=== PATIENT | female | born 1990 ===

== ENCOUNTER → 2020-08-19 12:53 | Outpatient (BNVA) | payer MEDICAID, SELFPAY | PROVIDERS: PCP Internal Medicine; Referring Provider Internal Medicine; Visit Provider Anesthesiology | DX: M47.16 Other spondylosis with myelopathy, lumbar region (principal); M46.1 Sacroiliitis, not elsewhere classified; E66.01 Morbid (severe) obesity due to excess calories | CPT/HCPCS: 99202 ==

== ENCOUNTER 2020-11-03 07:02 | Outpatient (REF) | payer MEDICAID, SELFPAY | END 2020-11-03 07:03 | disposition home or self-care (01) | LOC: HO.RADIR 07:02 | PROVIDERS: Visit Provider Anesthesiology | DX: Z13.89 Encounter for screening for other disorder (principal) ==

== ENCOUNTER 2023-05-11 15:29 | Outpatient (REF) | payer MEDICAID, SELFPAY ==
--- NOTE | 2023-05-11 | PFT_ITS ---
FLOWS: 1. FEV1 81% of predicted at 2.66 L. 2. FVC 76% of predicted at 2.96 L. 3. FEV1 to FVC ratio of 0.90. 4. No bronchodilator response. LUNG VOLUMES: 1. Total lung capacity 75% of predicted at 3.91 L. 2. Residual volume 72% of predicted at 1.07 L. 3. Slow vital capacity 76% of predicted at 2.84 L. 4. Expiratory reserve volume 23% of predicted at 0.33 L. 5. Diffusion capacity is normal. IMPRESSION: Mild restrictive ventilatory defect. No bronchodilator response. Decreased expiratory reserve volume suggests extrathoracic restriction, likely secondary to abdominal obesity. Sreedhar Long MD AP/MODL / [id number]
== END 2023-05-11 15:30 | disposition home or self-care (01) ==
LOC: HO.RESP 15:29
PROVIDERS: PCP Internal Medicine; Visit Provider Internal Medicine
DX: J45.20 Mild intermittent asthma, uncomplicated (principal)
CPT/HCPCS: 94010; 94727; 94729

== ENCOUNTER → 2023-05-11 15:30 | Outpatient (BNV) | payer MEDICAID, SELFPAY | PROVIDERS: PCP Internal Medicine; Visit Provider Internal Medicine Pulmonary Disease | DX: J45.909 Unspecified asthma, uncomplicated (principal) | CPT/HCPCS: 94060; 94727; 94729 ==

== ENCOUNTER → 2023-06-01 10:57 | Outpatient (BNVA) | payer MEDICAID, SELFPAY | PROVIDERS: PCP Internal Medicine; Visit Provider Physician Assistant ==

== ENCOUNTER 2023-06-07 08:00 | Outpatient (AMB) | payer MEDICAID, SELFPAY ==
--- NOTE | 2023-06-07 09:15 | A.OFFVIS_ITS ---
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 HPI Details Start time: 9am, End time: 9.57am ?I spent 52 minutes speaking with the patient on the phone plus an additional 5 minutes reviewing and updating records for a total of 57 minutes HPI Comments History of Present Illness Details Previous weight loss efforts: exercise, self diets, OTC diet pills Wakes up: 7am, Sleeps: 11pm Breakfast: skips Lunch: 12pm (pasta or sandwich) Dinner: 6.30pm (rice, potatoes, chicken) Snacks: none Exercise: none Fluids: Coffee: none, Tea: 1 cup x2/wk (honey), soda: none, juice: 1 cup /day, ETOH: 2/month (Whiskey) PFSH Medical History (Updated 06/07/23 @ 09:17 by Dash Worthington MD) History of headache Asthma Morbid obesity Spondylosis, lumbar, with myelopathy Sacroiliitis Surgical History (Updated 06/01/23 @ 11:11 by Rama Claros CMA) Hx of tubal ligation Hx of breast reduction, elective Family History (Updated 06/01/23 @ 11:13 by Rama Claros CMA) Mother Prediabetes Asthma Hypertension Father No problems noted. Son No problems noted. Son No problems noted. Daughter No problems noted. Social History (Updated 06/01/23 @ 11:11 by Rama Claros CMA) Alcohol intake: current Alcohol intake frequency: holidays/special occasions only Patient Tobacco Use Status: Current everyday Tobacco user Cigarettes Per Day: 5 Assessment & Plan Assessment & Plan (1) Morbid obesity: Code(s): E66.01 - Morbid (severe) obesity due to excess calories Plan: 1.? Plan for lap sleeve gastrectomy. If diaphragmatic or ventral hernias are present at time of surgery, these will be repaired laparoscopically as well. Risks and complications were discussed in detail including possible conversion to an open procedure, anastomotic leak, bleeding requiring transfusion, small bowel obstruction, , DVT and pulmonary embolism, cardiac, or pulmonary complications, as predatory animal exterminator complications such as anastomotic ulcer, insufficient weight loss and vitamin deficiencies. I emphasized the importance of close follow-up, adherence to instructions and good communication. 2. Nutritional counseling. Start with 2 Isopure INFUSION protein (buy at [employer], or [employer]) shakes (HALF scoop EACH in 8oz water) at 8am-10am and 11am-1pm, 1 protein bar (Zone Perfect protein bars, buy at [employer], ?[employer], [facility], or [employer]) at 2pm-4pm, dinner at 5pm (10 forks of protein and 10 forks of salad/vegetables) and one more protein bar after dinner at 7pm-9pm. If hungry, you can have another HALF protein bar at 10pm-11pm. Meal to include lean meat (beef, fish, pork, turkey, chicken), or thai yogurt, or egg whites, or beans with a salad with olive oil and fruits (berries, pears, apples, kiwi). Avoid salt, breads, potatoes, rice, pasta, desserts. 3. Each shake would be drunk slowly, like coffee in a period of 2 hours. 4. Cut each bar in 4 pieces and eat each piece in 30min ?to make each bar last 2 hours. 5. I emphasized the importance of measuring accurately the food portion and measure it when serving the food in plate 6. The meal portions include 10 full-size forks of meat and 10 full-size forks of salad. You always eat the meat portion but you can replace up to 5 forks for salad/vegetables with rice, potatoes or pasta, or a fruit ?if you like. The less you do it the better weight loss will be. 7. One full-size fork is what it can be scooped on the fork without falling aside and not what can be bit with the fork. Use regular forks like those you find in a typical restaurant. 8.? Please send me weight measurements as soon as possible and then once a week. Always include your diet and exercise plan. 9. Start walking outside daily, tracking calories with a goal of 300 calories per day, daily. Goal is to burn 2000 calories per week on exercise, which means either 300 calories daily, or 400 calories 5 days per week, or 500 calories 4 days per week, or 650 calories 3 days per week. 10. Alternatively purchase a stationary bike, elliptical or treadmill at home that can track calories. Let me know if you do so I can give you an exercise plan. 11.?It is important of avoiding and for at least 18 months postoperatively and has been discussed at the infosession. 12. Goal is to lose at least 1.5-2lbs per week 13. Goal to lose 10% of your weight before surgery, which is about 27lbs. Ultimate weight goal: 245lbs before surgery 14. Please follow the diet plan exactly without any change. If you don't like something about the plan or you feel hungry you need to communicate with me so I can help you revise the plan. You should not change the plan yourself. (2) Spondylosis, lumbar, with myelopathy: Code(s): M47.16 - Other spondylosis with myelopathy, lumbar region (3) Asthma: Comment: has rescue inhaler only Code(s): J45.909 - Unspecified asthma, uncomplicated Orders: Orders Lipid Panel Today E66.01 - Morbid (severe) obesity due to excess calories, J45.909 - Unspecified asthma, uncomplicated IRON PROFILE Today E66.01 - Morbid (severe) obesity due to excess calories, J45.909 - Unspecified asthma, uncomplicated Complete Blood Count Auto Diff Today E66.01 - Morbid (severe) obesity due to excess calories, J45.909 - Unspecified asthma, uncomplicated Comprehensive Met. Panel Today E66.01 - Morbid (severe) obesity due to excess calories, J45.909 - Unspecified asthma, uncomplicated Vitamin B1 Today E66.01 - Morbid (severe) obesity due to excess calories, J45.909 - Unspecified asthma, uncomplicated C Reactive Protein Today E66.01 - Morbid (severe) obesity due to excess calories, J45.909 - Unspecified asthma, uncomplicated TSH reflex Free T4 Today E66.01 - Morbid (severe) obesity due to excess calories, J45.909 - Unspecified asthma, uncomplicated H Pylori Breath Test Today E66.01 - Morbid (severe) obesity due to excess calories, J45.909 - Unspecified asthma, uncomplicated Vitamin D 25-OH Total Today E66.01 - Morbid (severe) obesity due to excess calories, J45.909 - Unspecified asthma, uncomplicated US abdomen comp w elastography Today E66.01 - Morbid (severe) obesity due to excess calories, J45.909 - Unspecified asthma, uncomplicated XR chest 2V Today E66.01 - Morbid (severe) obesity due to excess calories, J45.909 - Unspecified asthma, uncomplicated FL upper GI w air Today E66.01 - Morbid (severe) obesity due to excess calories, J45.909 - Unspecified asthma, uncomplicated Insulin Today E66.01 - Morbid (severe) obesity due to excess calories, J45.909 - Unspecified asthma, uncomplicated Vitamin B12 and Folate Today E66.01 - Morbid (severe) obesity due to excess calories, J45.909 - Unspecified asthma, uncomplicated Zinc Today E66.01 - Morbid (severe) obesity due to excess calories, J45.909 - Unspecified asthma, uncomplicated Vitamin A Today E66.01 - Morbid (severe) obesity due to excess calories, J45.909 - Unspecified asthma, uncomplicated Ferritin Today E66.01 - Morbid (severe) obesity due to excess calories, J45.909 - Unspecified asthma, uncomplicated PTHI Today E66.01 - Morbid (severe) obesity due to excess calories, J45.909 - Unspecified asthma, uncomplicated Hemoglobin A1c Today E66.01 - Morbid (severe) obesity due to excess calories, J45.909 - Unspecified asthma, uncomplicated ECG 12 lead EKG Today E66.01 - Morbid (severe) obesity due to excess calories, J45.909 - Unspecified asthma, uncomplicated Referrals Behavioral Health Referral E66.01 - Morbid (severe) obesity due to excess calories, J45.909 - Unspecified asthma, uncomplicated Nutrition/Dietitian Referral E66.01 - Morbid (severe) obesity due to excess calories, J45.909 - Unspecified asthma, uncomplicated Telehealth Telehealth Location of provider rendering services: practice address Location of patient: address on file Patient Identification confirmed using: Name, : Yes Telehealth method: voice only Patient verbally consented to treatment: Yes Patient verbally consented to billing insurance company: Yes Patient informed of any privacy concerns related to visit: Yes Minutes spent on Phone/Video with Pt.: 57 Coding Level of Care Code Tele New Pt Level 4 (46593) Diagnoses Morbid obesity E66.01 Spondylosis, lumbar, with myelopathy M47.16 Asthma J45.909 Time Spent (min) 57
[2023-06-07 09:22] VITALS: BMI 46.7
== END 2023-06-07 09:58 | disposition home or self-care (01) ==
PROVIDERS: PCP Internal Medicine; Visit Provider Surgery
DX: E66.01 Morbid (severe) obesity due to excess calories (principal); Z68.42 Body mass index [BMI] 45.0-49.9, adult; M47.16 Other spondylosis with myelopathy, lumbar region; J45.909 Unspecified asthma, uncomplicated
CPT/HCPCS: 99205

== ENCOUNTER → 2023-06-07 08:00 | Outpatient (BNVA) | payer MEDICAID, SELFPAY | PROVIDERS: PCP Internal Medicine; Visit Provider Surgery | DX: E66.01 Morbid (severe) obesity due to excess calories (principal); M47.16 Other spondylosis with myelopathy, lumbar region; J45.909 Unspecified asthma, uncomplicated; Z68.42 Body mass index [BMI] 45.0-49.9, adult | CPT/HCPCS: 83013 ==

== ENCOUNTER → 2023-06-14 11:42 | Outpatient (REF) | payer MEDICAID, SELFPAY ==
--- NOTE | 2023-06-14 11:49 | ECG_ITS ---
Test Reason : MORBID OBESITY Blood Pressure : / mmHG Vent. Rate : 083 BPM Atrial Rate : 083 BPM P-R Int : 120 ms QRS Dur : 088 ms QT Int : 364 ms P-R-T Axes : 007 026 017 degrees QTc Int : 427 ms Normal sinus rhythm Normal ECG No previous ECGs available Referred By: Dash Worthington Electronically Signed By:FELICIA ZAYAS
== END ==
LOC: HO.CARD 11:42
PROVIDERS: Visit Provider Surgery
DX: E66.01 Morbid (severe) obesity due to excess calories (principal); J45.909 Unspecified asthma, uncomplicated
CPT/HCPCS: 71046; 93005

== ENCOUNTER 2023-06-15 12:10 | Outpatient (REF) | payer MEDICAID, SELFPAY | END 2023-06-15 12:11 | disposition home or self-care (01) | LOC: HO.LAB 12:10 | PROVIDERS: PCP Internal Medicine; Visit Provider Surgery | DX: E66.01 Morbid (severe) obesity due to excess calories (principal); J45.909 Unspecified asthma, uncomplicated | CPT/HCPCS: 36415; 80053; 80061; 82306; 82607; 82728; 82746; 83013; 83036; 83525; 83540; 83970; 84425; 84443; 84590; 84630; 85025; 86140 ==

== ENCOUNTER → 2023-07-07 08:02 | Outpatient (BNVA) | payer MEDICAID, SELFPAY | PROVIDERS: PCP Internal Medicine; Visit Provider Surgery ==

== ENCOUNTER → 2023-07-10 14:11 | Outpatient (BNVA) | payer MEDICAID, SELFPAY | PROVIDERS: PCP Internal Medicine; Visit Provider Dietitian, Registered | DX: E66.01 Morbid (severe) obesity due to excess calories (principal); Z68.42 Body mass index [BMI] 45.0-49.9, adult | CPT/HCPCS: 97802 ==

== ENCOUNTER 2023-07-13 08:29 | Outpatient (AMB) | payer MEDICAID, SELFPAY ==
--- NOTE | 2023-07-13 09:46 | A.OFFVIS_ITS ---
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 Allergies No Known Allergies Allergy (Verified 06/07/23 09:15) HPI TV Follow Up SWL HPI Details Start time: 9.36am, End time: 10.06am ?I spent 25 minutes speaking with the patient on the phone plus an additional 5 minutes reviewing and updating records for a total of 30 minutes HPI Comments History of Present Illness Details Overall weight loss: 0.2lbs Is doing 2 Isopure Infusions shakes (1/2 scoop each in 8oz water), 2 Zone Perfect protein bars and one meal (7 forks of protein and 7 forks of salad) Exercise: walking/jogging x3/week [facility] Medical History (Updated 07/13/23 @ 09:42 by Dash Worthington MD) History of headache Asthma Morbid obesity Spondylosis, lumbar, with myelopathy Sacroiliitis Surgical History (Updated 06/01/23 @ 11:11 by Rama Claros CMA) Hx of tubal ligation Hx of breast reduction, elective Family History (Updated 06/01/23 @ 11:13 by Rama Claros CMA) Mother Prediabetes Asthma Hypertension Father No problems noted. Son No problems noted. Son No problems noted. Daughter No problems noted. Social History (Updated 06/01/23 @ 11:11 by Rama Claros CMA) Alcohol intake: current Alcohol intake frequency: holidays/special occasions only Patient Tobacco Use Status: Current everyday Tobacco user Cigarettes Per Day: 5 Assessment & Plan Assessment & Plan (1) Morbid obesity: Code(s): E66.01 - Morbid (severe) obesity due to excess calories Plan: 1. Change nutritional plan to 2 Isopure Infusions shakes (1/2 scoop each in 8oz water), 2 Zone Perfect protein bars and one meal (TEN forks of protein and TEN forks of salad) 2. Exercise: continue walking/jogging ideally 5 days per week. Track the calories of your walks and report them to me. Goal is to burn 2000 calories per week on aerobic exercise 3. Please purchase a stationary bike, elliptical or treadmill at home that can track calories. Let me know if you do so I can give you an exercise plan. 4. Send me weight measurements today and then weekly on . This is very important. Medications: New vitamin A palmitate 10,000 units PO DAILY 30 caps 0RF E50.9 - Vitamin A deficiency, unspecified Telehealth Telehealth Location of provider rendering services: practice address Location of patient: address on file Patient Identification confirmed using: Name, : Yes Telehealth method: voice only Patient verbally consented to treatment: Yes Patient verbally consented to billing insurance company: Yes Patient informed of any privacy concerns related to visit: Yes Minutes spent on Phone/Video with Pt.: 30 Coding Level of Care Code Tele Est Pt Level 4 (54699) Diagnoses Morbid obesity E66.01 Time Spent (min) 30
[2023-07-13 09:58] VITALS: BMI 46.7
== END 2023-07-13 10:07 | disposition home or self-care (01) ==
LOC: HO.HBS 08:29
PROVIDERS: PCP Internal Medicine; Visit Provider Surgery
DX: E66.01 Morbid (severe) obesity due to excess calories (principal); Z68.42 Body mass index [BMI] 45.0-49.9, adult
CPT/HCPCS: 99214

== ENCOUNTER → 2023-07-13 08:29 | Outpatient (BNVA) | payer MEDICAID, SELFPAY | PROVIDERS: PCP Internal Medicine; Visit Provider Surgery ==

== ENCOUNTER 2023-07-26 09:45 | Outpatient (REF) | payer MEDICAID, SELFPAY ==
[2023-07-29 09:09] LABS: H Pylori Breath Test Positive (Negative)
== END 2023-07-26 09:46 | disposition home or self-care (01) ==
LOC: HO.LNP 09:45
PROVIDERS: PCP Internal Medicine; Visit Provider Surgery
DX: A04.8 Other specified bacterial intestinal infections (principal)
CPT/HCPCS: 83013; 99211

== ENCOUNTER → 2023-07-31 08:17 | Outpatient (BNVA) | payer MEDICAID, SELFPAY | PROVIDERS: PCP Internal Medicine; Visit Provider Surgery ==

== ENCOUNTER 2023-08-07 10:15 | Outpatient (AMB) | payer MEDICAID, SELFPAY ==
--- NOTE | 2023-08-07 10:18 | A.OFFWM_ITS ---
Intake Intake Visit Reasons: VIDEO BH Intake Allergies No Known Allergies Allergy (Verified 06/07/23 09:15) [facility] Medical History (Updated 08/07/23 @ 10:40 by Cindy Gibson) History of headache Asthma Morbid obesity Spondylosis, lumbar, with myelopathy Sacroiliitis Surgical History (Updated 06/01/23 @ 11:11 by Rama Claros CMA) Hx of tubal ligation Hx of breast reduction, elective Family History (Updated 06/01/23 @ 11:13 by Rama Claros CMA) Mother Prediabetes Asthma Hypertension Father No problems noted. Son No problems noted. Son No problems noted. Daughter No problems noted. (Updated 06/01/23 @ 11:11 by Rama Claros CMA) Alcohol intake: current Alcohol intake frequency: holidays/special occasions only Patient Tobacco Use Status: Current everyday Tobacco user Cigarettes Per Day: 5 Behavioral Health Assessment Weight Management Therapy Therapy Notes Details Pt is looking to have weight loss surgery to help improve her health and quality of life. Pt stated that she does not feel comfortable with herself. She denied any mental health treatment or issues recently or in the past. She has never been in therapy. Pt has no history of drug or alcohol abuse. Presenting Concerns Referral Source provider Reason for referral weight loss surgery evaluation Precipitating Event obesity Living Situation At risk of losing current housing? Yes Satisfied with current living situation? No Comments Pt lives with her fiance and her children ages 15, 14, and 9 years old. Food/Weight/Diet Expectations of change weight loss and maintenance History/Relationship with food Pt stated that she was eating take out about three times a week, food at home was pasta, rice, beans, plantains, meat, breads. History/Relationship with weight After her third , she reported struggling with her weight. History/Relationship with dieting self diets and exercise, minimal weight loss Binge Eating Do you frequently eat large amounts of food in short periods of time, not feeling physically hungry? Yes Do you feel out of control when you eat a large amount of food in a short period of time? No Do you eat large amounts of food rapidly and typically alone? Yes Night Eating Do you wake up at least once during the night to eat? No If you wake up in the night, do you find that it is necessary to eat something in order to fall back asleep? No Do you have little or no appetite in the morning and feel very hungry in the evening, often overeating between dinner and when you go to bed? Yes Social History Family history and relationship Pt was born in [place] and raised here by her mother, step father and two sisters and one brother. 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 none Education Highest grade completed 9th grade Preferred learning style Auditory, Verbal, Written, Learn by doing and Visual Currently enrolled in educational program? No Interested in further educational program? 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 No Financial Situation Financial assistance? None Service Service? No Mental Health and Addiction Treatment Current/Past substance abuse? No Current/Past addictive behavior concerns? No Medical and Physical Health Summary Physical exam in the last year? Yes Pain Screening Current pain? Yes Pain in the last few months? No Medications Is the patient compliant with medications? Yes Does the patient have He Guardian in place? Not applicable Does the patient use complimentary health approaches? No Trauma/Abuse History History of trauma? No Questionnaires PHQ-9 Over the last 2 weeks, how often have you been bothered by any of the following problems? 1. Little interest or pleasure in doing things: several days 2. Feeling down, depressed, or hopeless: not at all 3. Trouble falling or staying asleep, or sleeping too much: several days 4. Feeling tired or having little energy: several days 5. Poor appetite or overeating: several days 6. Feeling bad about yourself - or that you are a failure or have let yourself or your family down: not at all 7. Trouble concentrating on things, such as reading the newspaper or watching television: several days 8. Moving or speaking so slowly that other people could have noticed. Or the opposite - being so fidgety or restless that you have been moving around a lot more than usual: not at all 9. Thoughts that you would be better off or of hurting yourself in some way: not at all Total score: 5 Source: Developed by Christina UrbinaW. Dhiraj, Ruddy Menezes and colleagues, with an educational calvin from [employer]. Binge Eating Scale Group 1 A. I don't feel self-conscious about my wt. or body size when I'm with others. B. I feel concerned about how I look to others, but it normally does not make me fell disappointed with myself C. I do get self-conscious about my appearance and wt. which makes me feel disappointed in myself. D. I feel very self-conscious about my wt. and frequently I feel intense shame and disgust for myself. I try to avoid social contacts because of my self- consciousness. Response Group 1: C Group 2 A. I don't have any difficulty eating slowly in the proper manner. B. Although I seem to gobble down foods, I don't end up feeling stuffed because of eating to much. C. At times, I tend to eat quickly and then, I feel uncomfortably full afterwards. D. I have the habit of bolting down my food, without really chewing it. When this happens I usually feel uncomfortably stuffed because I've eaten to much. Response Group 2: C Group 3 A. I feel capable to control my eating urges when I want to. B. I feel like I have failed to control my eating more than the average person. C. I feel utterly helpless when it comes to feeling in control of my eating urges. D. Because I feel so helpless about controlling my eating I have become very desperate about trying to get control. Response Group 3: A Group 4 A. I don't have the habit of eating when I'm bored. B. I sometimes eat when I'm bored, but often I'm able to get busy and get my mind off food. C. I have a regular habit of eating when I'm bored, but occasionally, I can use some other activity to get my mind off eating. D. I have a strong habit of eating when I'm bored. Nothing seems to help me breath the habit. Response Group 4: B Group 5 A. I'm usually physically hungry when I eat something. B. Occasionally, I eat something on impulse even though I really am not hungry. C. I have the regular habit of eating foods, that I might not really enjoy, to satisfy a hungry feeling even though physically, I don't need the food. D. Although I'm not physically hungry, I get a hungry feeling in my mouth that only seems to be satisfied when I eat a food, like sandwich, that fills my mouth. Sometimes, when I eat the food to satisfy my mouth hunger, I then spit the food out so I won't gain weight. Response Group 5: B Group 6 A. I don't feel any guilt or self-hate after I overeat. B. After I overeat, occasionally I feel guilt or self-hate. C. Almost all the time I experience strong guilt or self-hate after I overeat. Response Group 6: B Group 7 A. I don't lose total control of my eating when dieting even after periods when I overeat. B. Sometimes when I eat a forbidden food on a diet, I feel like I blew it and eat even more. C. Frequently, I have the habit of saying to myself, I've blown it now, why not go all the way, when I overeat on a diet. When that happens I eat more. D. I have a regular habit of starting a strict diets for myself but I break the diets by going on an eating binge. My life seems to be either a feast or famine. Response Group 7: A Group 8 A. I rarely eat so much food that I feel uncomfortably stuffed afterwards. B. Usually about once a month, I each such a quantity of food, I end up feeling very stuffed. C. I have regular periods during the month when I eat large amounts of food, either at mealtime or at snacks. D. I eat so much food that I regularly feel quite uncomfortable after eating and sometimes a bit nauseous. Response Group 8: C Group 9 A. My level of calorie intake does not go up very high or go down very low on a regular basis. B. Sometimes after I overeat, I will try to reduce my caloric intake to almost nothing to compensate for the excess calories I've eaten. C. I have a regular habit of overeating during the night. It seems that my routine is not to be hungry in the morning but overeat in the evening. D. In my adult years, I have had week-long periods where I practically starve myself. This follows periods when I overeat. It seems I live a life of either feast or famine. Response Group 9: B Group 10 A. I usually am able to stop eating when I want to. I know when enough is enough. B. Every so often, I experience a compulsion to eat which I can't seem to control. C. Frequently, I experience strong urges to eat which I seem unable to control, but at other times I can control my eating urges. D. I feel incapable of controlling urges to eat. I have a fear of not being able to stop eating voluntarily. Response Group 10: B Group 11 A. I don't have any problem stopping eating when I feel full. B. I usually can stop eating when I feel full but occasionally overeat leaving me feeling uncomfortably stuffed. C. I have a problem stopping eating once I start and usually I feel uncomfortably stuffed after I eat a meal. D. Because I have a problem not being able to stop eating when I want, I sometimes have to induce vomiting to relieve my stuffed feeling. Response Group 11: A Group 12 A. I seem to eat just as much when I'm with others, Family social gatherings as when I'm by myself. B. Sometimes, when I'm with other persons, I don't eat as much as I want to eat because I'm self-conscious about my eating. C. Frequently, I eat only a small amount of food when others are present, because I'm very embarrassed about my eating. D. I feel so ashamed about overeating that I pick times to overeat when I know no one will see me. I feel like a closet eater. Response Group 12: B Group 13 A. I eat three meals a day with only an occasional between meal snack. B. I eat 3 meals a day, but I also normally snack between meals. C. When I am snacking heavily, I get in the habit of skipping regular meals. D. There are regular periods when I seem to be continually eating, with no planned meals. Response Group 13: A Group 14 A. I don't think much about trying to control unwanted eating urges. B. At least some of the time, I feel my thoughts are pre-occupied with trying to control my eating urges. C. I feel that frequently I spend much time thinking about how much I ate or about trying not to eat anymore. D. It seems to me that most of my waking hours are pre-occupied by thoughts about eating or not eating. I feel like I'm constantly struggling not to eat. Response Group 14: C Group 15 A. I don't think about food a great deal. B. I have strong craving for food but they last only for brief periods of time. C. I have days when I can't seem to think about anything else but food. D. Most of my days seem to be pre-occupied with thoughts about food. I feel like I live to eat. Response Group 15: B Group 16 A. I usually know whether or not I'm physically hungry. I take the right portion of food to satisfy me. B. Occasionally, I feel uncertain about knowing whether or not I'm physically hungry. A these times it's hard to know how much food I should take to satisfy me. C. Even though I might know how many calories I should eat, I don't have any idea what is a normal amount of food for me. Response Group 16: B Binge Eating Score: 16 Score less than 17 Minimal Risk Score between 18-26 Moderate Risk Score between 27-46 High Risk Assessment & Plan Assessment & Plan (1) Adjustment disorder, unspecified: Code(s): F43.20 - Adjustment disorder, unspecified (2) Morbid obesity: Code(s): E66.01 - Morbid (severe) obesity due to excess calories Plan Pt has no mental health history or treatment. She is cleared for surgery when ready. Telehealth Telehealth Location of provider rendering services: practice address Location of patient: address on file Patient Identification confirmed using: Name, : Yes Telehealth method: video Patient verbally consented to treatment: Yes Patient verbally consented to billing insurance company: Yes Patient informed of any privacy concerns related to visit: Yes Minutes spent on Phone/Video with Pt.: 30 Coding Level of Care Code Tele Psy Diag Eval (95376) Diagnoses Adjustment disorder, unspecified F43.20 Morbid obesity E66.01 Time Spent (min) 30
== END 2023-08-07 10:40 | disposition home or self-care (01) ==
LOC: HO.HBST 10:36
PROVIDERS: PCP Internal Medicine; Visit Provider Counselor Mental Health
DX: F43.20 Adjustment disorder, unspecified (principal); E66.01 Morbid (severe) obesity due to excess calories
CPT/HCPCS: 90791

== ENCOUNTER → 2023-08-07 10:15 | Outpatient (BNVA) | payer OTHER, MEDICAID, SELFPAY | PROVIDERS: PCP Internal Medicine; Visit Provider Counselor Mental Health | DX: E66.01 Morbid (severe) obesity due to excess calories (principal); F43.20 Adjustment disorder, unspecified | CPT/HCPCS: 90791 ==

== ENCOUNTER 2024-02-23 14:11 | Outpatient (REF) | payer MEDICAID, SELFPAY ==
[2024-02-23 15:05] LABS: Estimated Average Glucose 111 mg/dL; Hemoglobin A1c % 5.5 % (<6.0)
[2024-02-23 15:20] LABS: Anion Gap 13 (12-20); Blood Urea Nitrogen 7 mg/dL (9-16); Calcium 8.9 mg/dL (8.4-10.2); Carbon Dioxide 25 mmol/L (22-29); Chloride 105 mmol/L (96-108); Estimated Glomerular Filt Rate > 60; Glucose Random 94 mg/dL (60-115); Potassium 3.9 mmol/L (3.3-5.1); Sodium 139 mmol/L (135-145)
[2024-02-23 15:34] LABS: TSH reflex Free T4 1.15 uIU/mL (0.32-4.0)
== END 2024-02-23 14:12 | disposition home or self-care (01) ==
LOC: HO.CHCLDS 14:11
PROVIDERS: Visit Provider Internal Medicine
DX: G56.03 Carpal tunnel syndrome, bilateral upper limbs (principal)
CPT/HCPCS: 36415; 80048; 83036; 84443

== ENCOUNTER 2024-03-08 14:29 | Outpatient (REF) | payer MEDICAID, SELFPAY ==
--- NOTE | 2024-03-08 14:34 | EMG_ITS ---
Chief complaint: Bilateral hand numbness Reason for referral: Evaluate for Carpal Tunnel Syndrome Referred by: Dr. Arias Procedure done: Bilateral upper extremities NCS/EMG Precautions and/or limitations: None The limb temperature was monitored continuously and remained between 32-36 degrees C during the performance of the NCS. Nerve Conduction Studies Anti Sensory Summary Table ?Stim Site NR Onset (ms) Norm Onset (ms) Peak (ms) Norm Peak (ms) O-P Amp (?V) Norm O-P Amp Site1 Site2 Delta-0 (ms) Dist (cm) Haroon (m/s) Norm Haroon (m/s) Left Median Anti Sensory (2nd Digit) Wrist ? 3.5 4.7 <3.6 3.7 >10 Wrist 2nd Digit 3.5 14.0 40 Right Median Anti Sensory (2nd Digit) Wrist ? 3.4 4.1 <3.6 11.3 >10 Wrist 2nd Digit 3.4 14.0 41 Right Radial Anti Sensory (Thumb) Forearm ? 1.4 1.9 <3.1 22.9 Forearm Thumb 1.4 0.0 Left Ulnar Anti Sensory (5th Digit) Wrist ? 1.8 2.8 <3.7 18.2 >15.0 Wrist 5th Digit 1.8 14.0 78 Right Ulnar Anti Sensory (5th Digit) Wrist ? 1.6 2.6 <3.7 35.0 >15.0 Wrist 5th Digit 1.6 14.0 88 Motor Summary Table ?Stim Site NR Onset (ms) Norm Onset (ms) O-P Amp (mV) Norm O-P Amp iAmp (mV) Amp (1st) (%) Site1 Site2 Delta-0 (ms) Dist (cm) Haroon (m/s) Norm Haroon (m/s) Left Median Motor (Abd Poll Brev) Wrist ? 4.6 <3.9 9.3 >4.5 11.1 100.0 Elbow Wrist 3.8 22.5 59 >45 Elbow ? 8.4 8.7 10.5 93.5 Right Median Motor (Abd Poll Brev) Wrist ? 4.1 <3.9 11.7 >4.5 13.9 100.0 Elbow Wrist 3.5 21.0 60 >45 Elbow ? 7.6 9.7 11.5 82.9 Left Ulnar Motor (Abd Dig Minimi) Wrist ? 1.8 <3.0 5.4 >5 6.8 100.0 B Elbow Wrist 3.3 20.0 61 >45 B Elbow ? 5.1 5.6 7.0 103.7 A Elbow B Elbow 1.5 10.0 67 >45 A Elbow ? 6.6 5.6 6.8 103.7 Right Ulnar Motor (Abd Dig Minimi) Wrist ? 2.4 <3.0 8.9 >5 10.2 100.0 B Elbow Wrist 3.1 19.0 61 >45 B Elbow ? 5.5 9.0 10.3 101.1 A Elbow B Elbow 1.1 10.0 91 >45 A Elbow ? 6.6 8.9 10.3 100.0 EMG ?Side Muscle Nerve Root Ins Act Fibs Psw Amp Dur Poly Recrt Int Pat Comment Right 1stDorInt Ulnar C8-T1 Nml Nml Nml Nml Nml 0 Nml Complete Right FlexCarRad Median C6-7 Nml Nml Nml Nml Nml 0 Nml Complete Right Biceps Musculocut C5-6 Nml Nml Nml Nml Nml 0 Nml Complete Right Triceps Radial C6-7-8 Nml Nml Nml Nml Nml 0 Nml Complete Right Deltoid Axillary C5-6 Nml Nml Nml Nml Nml 0 Nml Complete Left 1stDorInt Ulnar C8-T1 Nml Nml Nml Nml Nml 0 Nml Complete Left FlexCarRad Median C6-7 Nml Nml Nml Nml Nml 0 Nml Complete Left Biceps Musculocut C5-6 Nml Nml Nml Nml Nml 0 Nml Complete Left Triceps Radial C6-7-8 Nml Nml Nml Nml Nml 0 Nml Complete Left Deltoid Axillary C5-6 Nml Nml Nml Nml Nml 0 Nml Complete FINDINGS: Bilateral median motor nerves showed prolonged distal latency, normal amplitude and normal conduction velocity. Bilateral median sensory nerves showed prolonged peak latency. All other nerves tested were within normal. Concentric needle EMG was performed in selected muscles of the bilateral upper extremities. Study did not reveal signs of electric abnormalities as shown in the table above. IMPRESSION: 1. This is an abnormal study. 2. There is electrodiagnostic evidence for bilateral moderate-severe median neuropathy at the wrist, consistent with carpal tunnel syndrome. 3. There is no electrodiagnostic evidence for ulnar neuropathy, brachial plexopathy, or cervical radiculopathy. Thank you for your kind referral. Lea Ortega MD, TISH Board Certified, [place] [employer] and [employer] (ABPMR) Board Certified, [place] Board [employer] Electrodiagnostic [employer] (ABEM) CODIN [id number] x 2 MTDD
== END 2024-03-08 14:30 | disposition home or self-care (01) ==
LOC: HO.NEURO 14:29
PROVIDERS: PCP Internal Medicine; Visit Provider Internal Medicine
DX: G56.03 Carpal tunnel syndrome, bilateral upper limbs (principal)
CPT/HCPCS: 95886; 95911

== ENCOUNTER → 2024-03-08 14:34 | Outpatient (BNV) | payer MEDICAID, SELFPAY | PROVIDERS: PCP Internal Medicine; Visit Provider Physical Medicine & Rehabilitation | DX: G56.03 Carpal tunnel syndrome, bilateral upper limbs (principal) | CPT/HCPCS: 95886; 95911 ==

== ENCOUNTER 2024-04-09 08:48 | Outpatient (AMB) | payer MEDICAID, SELFPAY ==
--- NOTE | 2024-04-09 09:05 | A.OFFVIS_ITS ---
Intake Visit Reasons: N/P B/L hand CTS Intake Note: Melanie is a 33 year old female who presents to the office today for a new patient visit for bilateral hand CTS. Pt states she has pain in her hands everyday but states the left is worse. Pt states the pain is worse after work. Pt states she works for the [employer]. Pt states she also gets numbness and tingling in both of her hands and fingers. Allergies No Known Allergies Allergy (Verified 04/09/24 08:58) HPI HPI N/P B/L hand CTS: Details: Patient is a 33-year-old left-hand dominant female who presents for evaluation of bilateral carpal tunnel syndrome. Patient reports that symptoms have been for many months, and then the left side is worse than the right. She reports that symptoms are intermittent, but daily, and she has pain that regularly wakes her from sleep or keeps her from sleeping. Patient had EMG done previously on March 04, revealing moderate to severe carpal tunnel bilaterally. Today, patient reports that she is not experiencing numbness and tingling currently, but states that if she were to position her hand and wrist a certain way it would begin. Patient inquires about potential treatment options. No other acute complaints or concerns at this time [facility] Medical History (Updated 04/09/24 @ 10:52 by LEXY Ramos) History of headache Asthma Morbid obesity Spondylosis, lumbar, with myelopathy Sacroiliitis Surgical History (Updated 06/01/23 @ 11:11 by Rama Claros CMA) Hx of tubal ligation Hx of breast reduction, elective Family History (Updated 06/01/23 @ 11:13 by Rama Claros CMA) Mother Prediabetes Asthma Hypertension Father No problems noted. Son No problems noted. Son No problems noted. Daughter No problems noted. Social History (Updated 06/01/23 @ 11:11 by Rama Claros CMA) Alcohol intake: current Alcohol intake frequency: holidays/special occasions only Patient Tobacco Use Status: Current everyday Tobacco user Cigarettes Per Day: 5 Review of Systems Const All systems reviewed & are unremarkable except as noted in HPI and below Physical Exam Extrem Other: Patient is alert, oriented, and in no acute distress. Neuro: Median, ulnar, radial nerves motor and sensory intact and sensation is normal to the tips of all digits. Vascular: Cap refill brisk Pain: Patient reports no pain at this time ROM: Range of motion full and intact bilaterally Skin: No lacerations or abrasions. General: No ecchymosis, erythema, or evidence of infection. Positive Tinel's test at the wrist bilaterally Psych: Appears grossly normal Affect normal Attitude cooperative Results Reviewed Results Reviewed: IMPRESSION: 1. This is an abnormal study. 2. There is electrodiagnostic evidence for bilateral moderate-severe median neuropathy at the wrist, consistent with carpal tunnel syndrome. 3. There is no electrodiagnostic evidence for ulnar neuropathy, brachial plexopathy, or cervical radiculopathy. Assessment & Plan Assessment & Plan (1) Carpal tunnel syndrome, bilateral: Code(s): G56.03 - Carpal tunnel syndrome, bilateral upper limbs Category: Medical Plan 1. Carpal tunnel syndrome, left Symptoms intermittent, but daily, worse at night I educated the patient about the condition. I discussed both operative and nonoperative treatment options. The patient would like to proceed with surgery. The risks and benefits of operative treatment were discussed with the patient and the patient wishes to proceed with surgery. These risks include, but are not limited to, risk of damage to blood vessels, nerves, tendons, infection, recurrence, incomplete relief of preoperative symptoms, persistent pain, possible need for further surgery, and the risks associated with regional blocks and/or anesthesia. Plan is to take the patient to the operating room at some point in the next few weeks for the following procedures: 1. Carpal tunnel release, left, under local anesthesia All of the preoperative paperwork including the consent was discussed today. All of the patient's questions were answered in the clinic today. The patient understands that they will be in contact with our commercial sales representative to discuss scheduling their procedure. Patient denies diabetes, blood thinners, asthma, heart issues, lung issues, kidney issues, Patient reports occasional light smoking currently, but states that she will st op smoking today, as she feels she can quit cold turkey without issue. 2. Carpal tunnel syndrome, right Symptoms intermittent, but daily, worse at night Patient feels her symptoms are more bothersome on the left side, so she would like to proceed with surgery on the left prior to surgery on the right Patient is informed that, if she is healing well, we can book surgery on the right at her postoperative visit for her left side Patient is amenable to this plan Patient will follow-up in the office prior to surgery, sooner with any acute concerns Coding Level of Care Code New Pt Level 4 (94827) Diagnoses Carpal tunnel syndrome, bilateral G56.03
== END 2024-04-09 09:30 | disposition home or self-care (01) ==
PROVIDERS: PCP Internal Medicine
DX: G56.03 Carpal tunnel syndrome, bilateral upper limbs (principal)
CPT/HCPCS: 99204

== ENCOUNTER → 2024-04-09 08:48 | Outpatient (BNVA) | payer MEDICAID, SELFPAY | PROVIDERS: PCP Internal Medicine | DX: G56.03 Carpal tunnel syndrome, bilateral upper limbs (principal) | CPT/HCPCS: 99212 ==

== ENCOUNTER 2024-09-23 13:56 | Day surgery (SDC) | payer MEDICAID, SELFPAY ==
[2024-09-23 14:13] VITALS: BMI 41.9
[2024-09-23 14:14] VITALS: PULSE 94; RESP 18; TEMP 36.1; O2SAT 96
[2024-09-23 14:15] VITALS: BP 124/81
--- NOTE | 2024-09-23 15:49 | MHC.SHP ---
Pre-Procedural Eval Section A - 24 Hr Update-Section A only Date of Service: 09/23/24 The patient is an INPATIENT: No Changes since office visit: No Cold of Flu in the past 2 weeks, No New Medical Problems, No Changes in Medication and No Patient answered all questions The patient has been examined within 24 hours of the surgical procedure. The History & Physical has been completed within 30 days and I have reviewed it.: Yes Section B - Complete if H&P > 30 days Chief Complaint: Carpal tunnel syndrome, left upper limb Allergies: Allergies Allergy/AdvReac Type Severity Reaction Status Date / Time No Known Allergies Allergy Verified 04/09/24 08:58 Plan Diagnosis/Plan: Unchanged I have reviewed the history and physical and performed a pertinent physical examination on my patient. No changes have occurred unless specified. Time Spent With Patient Time: Total time managing care of this patient today ____ minutes.
--- NOTE | 2024-09-23 15:49 | W.PM.OPN ---
Operative Note Operative Note Date of Service: 09/23/24 Narrative: Preop diagnosis: 1. Left Carpal tunnel syndrome Postop diagnosis: same Procedure: 1. Left Carpal tunnel release Surgeon: Debora Rojas MD Garment Inspector: None Anesthesia: local block using 1% lidocaine with epinephrine Findings: Thickened transverse carpal ligament. EBL: Less than 5 mL Specimens: None Complications: None Disposition: Brought to recovery room in stable condition Plan: Follow-up for 10-14 days for wound check and suture removal Indications: The patient is 34 years old, with left carpal tunnel syndrome that has been unresponsive to nonoperative management. The risks and benefits of operative treatment including but not limited to risk of damage to blood vessels, nerves, tendons, infection, persistent pain, persistent symptoms, or possible need for additional surgery were discussed with the patient and the patient wishes to proceed with surgery. Procedure: Once consent was obtained a local block was performed using a combination of 1% lidocaine with epinephrine. The patient was then brought back to the operating suite and placed on the operative table in supine position. The left upper extremity was prepped and draped in a standard surgical fashion. Once assured that we had a good block, a 2.0 cm longitudinal incision was made centered over the carpal tunnel. The incision was made through the skin to the subcutaneous tissues using a #15 blade. Dissection was made down to the level of the transverse carpal ligament with care being taken to protect the palmar cutaneous nerve. Once the transverse carpal ligament was clearly visualized, a longitudinal incision was made in the transverse carpal ligament 1st using a #15 blade, then using tenotomy scissors under direct visualization. Care was taken to look for and protect the motor branch of the median nerve when seen in this area. Once satisfied with our carpal tunnel release the wound was copiously irrigated with normal saline and hemostasis was obtained with a brief period of local pressure. The skin edges were reapproximated with some 5.0 nylon suture material and a sterile dressing was applied. The patient appears to have tolerated the procedure well and with no complications. All digits were well vascularized at the conclusion of the case.
[2024-09-23 17:06] VITALS: BP 120/66; PULSE 84; RESP 20; TEMP 36.8
== END 2024-09-23 17:24 | disposition home or self-care (01) ==
PROVIDERS: PCP Internal Medicine; Visit Provider Orthopaedic Surgery
PROC: (CPT 64721; principal; 2024-09-23 15:30)
DX: G56.02 Carpal tunnel syndrome, left upper limb (principal); R20.0 Anesthesia of skin; R20.2 Paresthesia of skin; J45.909 Unspecified asthma, uncomplicated; M47.16 Other spondylosis with myelopathy, lumbar region; M46.1 Sacroiliitis, not elsewhere classified; E66.01 Morbid (severe) obesity due to excess calories; Z98.890 Other specified postprocedural states; F17.210 Nicotine dependence, cigarettes, uncomplicated
CPT/HCPCS: 64721; J0171; J2003

== ENCOUNTER → 2024-09-23 13:56 | Outpatient (BNV) | payer MEDICAID, SELFPAY | PROVIDERS: PCP Internal Medicine; Visit Provider Orthopaedic Surgery | DX: G56.02 Carpal tunnel syndrome, left upper limb (principal) | CPT/HCPCS: 64721 ==

== ENCOUNTER 2024-10-08 13:25 | Outpatient (AMB) | payer MEDICAID, SELFPAY ==
[2024-10-08 13:34] VITALS: BMI 41.9
--- NOTE | 2024-10-08 13:34 | MHC.OFFVIS ---
Vital Signs 10/08/24 13:34 Height 5 ft 4 in Weight 244 lb BMI 41.9 Intake Visit Reasons: PO LT CTR 09/23/24 AR Intake Note: Melanie is a 34 year old left hand dominant female who presents today for a post operative visit s/p left carpal tunnel release DOS: 09/23/24 w/ Dr Rojas. Patient reports that she is doing well, her numbness and tingling has subsided. Currently she has pain located at the ulnar aspect of wrist. Allergies No Known Allergies Allergy (Verified 10/08/24 13:37) HPI HPI PO LT CTR 09/23/24 AR: Details: Melanie is a 34 year old left hand dominant female who presents today for a post operative visit s/p left carpal tunnel release DOS: 09/23/24 w/ Dr Rojas. Patient reports that she is doing well, her numbness and tingling has subsided. Currently she has pain located at the most proximal part of the incision, with associated mild redness. [facility] Medical History (Updated 10/08/24 @ 13:57 by LEXY Ramos) History of headache Asthma Morbid obesity Spondylosis, lumbar, with myelopathy Sacroiliitis Surgical History Hx of tubal ligation Hx of breast reduction, elective Family History (Updated 06/01/23 @ 11:13 by Rama Claros [facility]) Mother Prediabetes Asthma Hypertension Father No problems noted. Son No problems noted. Son No problems noted. Daughter No problems noted. Social History (Updated 10/08/24 @ 13:35 by MARY Jeffers) Alcohol intake: current Alcohol intake frequency: holidays/special occasions only Patient Tobacco Use Status: Current everyday Tobacco user Cigarettes Per Day: 5 Current occupation: left hand dominant Physical Exam Vital Signs: BMI result Body Mass Index 41.9 Extrem Other: Patient is alert, oriented, and in no acute distress. Neuro: Normal sensation of the tips of all digits of the left hand at this time Vascular: Cap refill brisk Pain: Mild tenderness to palpation about the most proximal aspect of the incision in the left volar wrist No pain with range of motion of the left hand ROM: Patient was able to flex and extend all digits of the left hand fully and without difficulty Skin: Well approximated and well healing incision site noted on the volar left wrist Of note, there is noted to be some very mild erythema surrounding the most proximal part of the incision General: No ecchymosis or other evidence of infection. Psych: Appears grossly normal Affect normal Attitude cooperative Assessment & Plan Assessment & Plan (1) Left carpal tunnel syndrome: Code(s): G56.02 - Carpal tunnel syndrome, left upper limb Category: Medical Plan 1. Status post left carpal tunnel release DOS 09/23/2024 Patient appears to be recovering fairly well postoperatively Patient was educated about the typical recovery course At this time, out of an abundance of caution due to the mild erythema surrounding it proximal aspect of the incision, patient was placed on a one-week course of Augmentin Patient will follow-up in 1 week for a wound check Patient was amenable to this plan Patient will follow-up next week, sooner with any acute concerns Medications: New amoxicillin-pot clavulanate 875-125 mg 1 tab PO BID 14 tabs 0RF 7 days Coding Level of Care Code Global (26817) Diagnoses Left carpal tunnel syndrome G56.02
--- OUTSIDE RECORDS SUMMARY | 2024-10-08 14:26 | XMS_ITS | Encounter Summary ---
Author Organization [employer] Address [address] [facility] 7t [place] [address] Care Team Providers Care Logistics Program Manager Name Role Phone Chalo Lemos MD Primary Care Prov ider Encounter Details Date Type Department Care Team ([facility] st Contact Info) Description 10/07/2024 1:00 PM EST Telemedicine [facility] MED & PEDS [address] [place] [address] Chalo Lemos MD [address] [place] [address] Social History Tobacco Use Types Packs/Day Years Used Date Smoking Tobacco: Every Day Cigarettes 0.5 10 Smokeless Tobacco: Never Alcohol Use Standard Drinks/Week Comments Yes 4 (1 standard drink = 0.6 oz pur e alcohol) PHQ-2 Answer Date Recorded Patient Health Questionnaire-2 Score 0 05/11/2023 Housing Stability Answer Date Recorded What is your housing situation today? I have elyssamarco a aguilera 07/04/[address] you li ve. Do you have problems with any of the following? None of the above 07/04/2023 Food Insecurity Answer Date Recorded Within the past 12 months, y ou worried that your food would run out before you got money to buy more: Never True 07/04/2023 Within the past 12 months,th e food you bought just didn't last and you didn't have enough money to get more: Never True Transportation Answer Date Recorded In the past 12 months, has l ack of transportation kept you from medical appts, meetings, work or from getting things needed for daily living? No 07/04/2023 Utilities Answer Date Recorded In the past 12 months, has t he electric, gas, oil or water company threatened to shut off services in your home? No 07/04/2023 Depression Answer Date Recorded Patient Health Questionnaire-2 Score 0 05/11/2023 Comments Unknown Sex and Gender Information Value Date Recorded Sex Assigned at Female 07/11/2022 10:37 AM EDT Legal Sex Female 10:37 AM EDT Gender Identity Female 07/11/2022 10:37 AM EDT Sexual Orientation Straight 07/11/2022 10 :37 AM EDT documented as of this encounter Plan of Treatment Not on file documented as of this encounter Visit Diagnoses Not on filedocumented in this encounter Care Teams Logistics Program Manager Relationship Specialty Start Date End Date Chalo Lemos MD [address] [place] [id number] PCP - General Internal Medicine 05/14/20 documented as of this encounter
--- OUTSIDE RECORDS SUMMARY | 2024-10-08 14:26 | XMS_ITS | Encounter Summary ---
Author Organization [employer] Address [address] [place] [address] Care Team Providers Care Detective And Intelligence Analyst Name Role Phone Chalo Lemos MD Primary Care Prov ider Reason for Visit * Reason Onset Date Comments Tele appt 10/07/2024 Encounter Details Date Type Department Care Team ([facility] st Contact Info) Description 10/07/2024 Telephone [facility] MEDICINE [address] [place], [place] [phone] Carissa Ross MA Tele appt Social History Tobacco Use Types Packs/Day Years [...] AM EDT documented as of this encounter Miscellaneous Notes * Telephone Encounter - Carissa Ross MA - 10/07/2024 1:31 PM EST T/c placed to pt x2 no answer documented in this encounter Plan of Treatment Not on file documented as of this encounter Visit Diagnoses Not on filedocumented in this encounter Care Teams Detective And Intelligence Analyst Relationship Specialty Start Date End Date Chalo Lemos MD [address] [place] [id number] PCP - General Internal Medicine 05/14/20 documented as of this encounter
--- OUTSIDE RECORDS SUMMARY | 2024-10-08 14:26 | XMS_ITS | Clinical Summary ---
Author Organization [employer] Address [address] [facility] 7t [place] [address] Care Team Providers Care Hepatology Physician Name Role Phone Chalo Lemos MD Primary Care Prov ider Allergies No known active allergies Medications albuterol 108 (90 Base) MCG/ACT inhalerIndication s:Mild intermittent asthma without complication Inhale 2 puffs every 4 (four) hours if needed for wheezing. 18 g 3 Active diclofenac (Cataflam) 50 MG tabletIndications :Bilateral carpal tunnel syndrome Take 1 tablet (50 mg) by mouth 3 times daily. 40 tablet 4 02/27/20 25 Active gabapentin (Neurontin) 300 MG capsule Take 1 capsule (300 mg) by mouth 3 times daily. 270 capsule 4 Active Active Problems Problem Noted Date Diagnosed Date Bilateral carpal tunnel syndrome 03/13/2024 Assessment & Plan (04/03/2024 4:15 PM EDT): Discussed treatment options to reduce symptoms until surgery. Prescribed prednisone and discussed potential side effects. Relevant Medications Prednisone (Deltasone) 20 MG tablet Assessment & Plan (03/13/2024 9:35 AM EDT): Moderate-severe finding, will refer to hand surgery for evaluation, continue wearing night brace, will start on gabapentin for neuropathic pain relief, continue with nsaids as needed Low back pain at multiple sites 10/04/2023 Assessment & Plan (10/04/2023 2:19 PM EST): Patient refers pain has improved, no warning signs, pending xray (not done), told to rest, apply ice, avoid heavy lifting, follow up as needed if nt improving, not interested in following with pain management for injections Screening for cervical cancer 03/09/2023 Assessment & Plan (03/09/2023 1:21 PM EDT): Will refer for screening pap smear with rizzardini Class 3 severe obesity due t o excess calories without serious comorbidity with body mass index (BMI) of 45.0 to 49.9 in adult 03/09/2023 Assessment & Plan (09/26/2023 8:33 AM EST): Seen at bariatric surgery clinic, will follow up reccomendations Assessment & Plan (03/09/2023 1:23 PM EDT): Will refer to bariatric surgery Mild intermittent asthma without complication Assessment & Plan (09/26/2023 8:32 AM EST): Controlled on albuterol as needed, using it less than 2-3 times a month, no recent er visit, will leave on current therapy, call back if using inhaler more frequently Assessment & Plan (05/11/2023 3:28 PM EDT): Controlled, refers she will get the PFT test today, will notify results, no changes will be made Assessment & Plan (03/09/2023 1:21 PM EDT): Controlled on albuterol as needed, last month used it twice, no recent er visit due to exacerbations Assessment & Plan (10/14/2022 4:11 PM EST): Will order PFT's, to evaluate sverity, continue albuterol prn. Encounters Date Type Department Care Team Description 10/07/2024 1:00 PM EST Telemedicine [facility] MED & PEDS [address] [place] [address] Chalo Lemos MD 10/07/2024 Telephone [facility] MED [facility] PEDS [address] [place] [address] Chalo Lemos MD No Show 10/07/2024 Telephone [facility] [address] [place] [phone] Carissa Ross MA Tele appt 10/07/2024 Travel 07/12/2024 Telephone [facility] MED & PEDS [address] [place] [address] Chalo Lemos MD 07/12/2024 Telephone [facility] [address] [place] [address] Chalo Lemos MD Nurse Triage from Last 3 Months Immunizations Name Administration Dates Next Due DTP 02/08/1996, 5,09/09/1994,04/09/1994, 12/08/1993 HPV, Quadrivalent 10/04/2011 Hep B, Unspecified 12/08/1996,07/10/1995, 995 HiB, unspecified 12/08/1993 IPV 02/08/1996,09/09/1994,04/09/1994 ,12/08/1993 Influenza Whole 09/01/2000 Influenza, IIV3, injectable 08/12/2013, 2,05/17/2011,06/22/2006 MMR 02/08/1996,12/08/1993 Meningococcal ACWY, unspecified 01/14/2013,10/04 Td (adult), unspecified 06/13/2003 Tdap 04/10/2014,10/04/2011 Varicella 06/30/2011 Family History Medical History Relation Name Comments Asthma Mother Hypertension Mother Relation Name Status Comments Mother Social History Tobacco Use Types Packs/Day Years Used Date Smoking Tobacco: Every Day Cigarettes 0.5 10 Smokeless Tobacco: Never Tobacco Cessation:Ready to Q uit: Not Asked; Counseling Given: Not Answered Alcohol Use Standard Drinks/Week Comments Yes 4 (1 standard drink = 0.6 oz pur e alcohol) PHQ-2 Answer Date Recorded Patient Health Questionnaire-2 Score 0 05/11/2023 Housing Stability Answer Date Recorded What is your housing situation today? I have elyssa aguilera 07/04/[address] you [...] Orientation Straight 07/11/2022 10 :37 AM EDT Last Filed Vital Signs Vital Sign Reading Time Taken Comments Blood Pressure 130/72 04/03/2024 3:50 PM EDT Pulse 80 04/03/2024 3:50 PM EDT Temperature 36.9 ??C (98.4 ??F) 04/03/2024 3:50 PM ED T Respiratory Rate 20 04/03/2024 3:50 PM EDT Oxygen Saturation 98% 04/03/2024 3:50 PM EDT Inhaled Oxygen Concentration - - Weight 121 kg (266 lb) 04/03/2024 3:50 PM EDT Height 165 cm (5' 4.96 ) 04/03/2024 3:50 PM EDT Body Mass Index 44.32 04/03/2024 3:50 PM EDT Plan of Treatment Health Maintenance Due Date Last Done Comments HIV Screening 1991 Pneumococcal Vaccine: Pediatrics (0 to 5 Years) and At-Risk Patients (6 to 64 Years) (1 of 2 - PCV) 1997 Alcohol/Substance Use Screening 2003 Family Planning (PISQ) 2006 Hepatitis C Screening 2009 HPV Vaccines (2 - 3-dose series) 11/01/2011 10/04/2011 Pap Smear 2012 Cervical Cancer Screening 2021 HPV/Cotest 2021 DTaP/Tdap/Td Vaccines (7 - Td or Tdap) 04/10/2024 04/10/2014, 10/04/2011, 06/13/2003, Additional history exists Depression Screening 05/11/2024 05/11/2023, 05/11/20 23 SDOH Screening 05/11/2024 05/11/2023 COVID-19 Vaccine ( season) 2024 09/01/2021, 08/11/2021 Influenza Vaccine (#1) 2024 3, 10/04/2011, 05/17/2011, Additional history exists Tobacco Screening 03/13/2025 03/13/2024 Lipid Panel 06/15/2028 06/15/2023 Zoster Vaccines (1 of 2) 2041 RSV Patients and Patients Aged 60 years or older (1 - 1-dose 75+ series) 2066 HIB Vaccines Completed 12/08/1993 IPV Vaccines Completed 02/08/1996, 08/13, 04/09/1994, Additional history exists Hepatitis B Vaccines Completed 12/08/1996, 07/10/1995, 02/07/1995 Meningococcal Vaccine Aged Out 01/14/2013, 012 No longer eligible based on patient's age to complete this topic Hepatitis A Vaccines Aged Out No long er eligible based on patient's age to complete this topic RSV under 20 months Aged Out No longe r eligible based on patient's age to complete this topic Rotavirus Vaccines Aged Out No longer eligible based on patient's age to complete this topic Procedures Procedure Name Priority Date/Time Associated Diagnosis Comments LIPID PANEL, STANDARD Routine 06/15/2023 12:29 PM EDT from Last 3 Months or Most Recently Relevant to Health Maintenance Results * (ABNORMAL) Lipid Panel, Standard (06/15/2023 12:29 PM EDT) Triglycerides 103 <150 mg/dL [facility] Comment:Desirable Triglyceri de: less than 150 mg/dLBorderline High Triglyceride 150-199 mg/dLHigh Triglyceride: 200-499 mg/dLVery High Triglyceride: greater than or equal to 5OO mg/dL Cholesterol 163 <200 mg/dL LAB[facility] Comment:Desirable Cholestero l: less than 200 mg/dLBorderline High Cholesterol: 200-239 mg/dLHigh Cholesterol: greater than 239 mg/dL LDL Cholesterol Calculated 111(H) <100 mg/dL LAB[facility] Comment:Desirable LDL: less than 100 mg/dLNear Optimal/Above Optimal LDL: 110- 129 mg/dLBorderline High LDL: 130-159 mg/dLHigh LDL: 160-189 mg/dLVery High LDL: greater than or equal to 190 mg/dL HDL Cholesterol 32(L) >40 mg/dL [facility] Comment:Desirable HDL: great er than 40 mg/dL Note: This HDL assay may give artificially low results in patients with liver disease. 06/15/2023 12:2 9 PM EDT 06/15/2023 12:34 PM EDT us Generic External Data Provider LAB BLOOD ORDERAB LES Final Result LABS [address] [place] [phone] from Last 3 Months or Most Recently Relevant to Health Maintenance Insurance [facility] C3 Care Teams Hepatology Physician Relationship Specialty Start Date End Date VelasquezChalo Love MD [address] [place] [address] [place] [id number] PCP - General Internal Medicine 05/14/20
--- OUTSIDE RECORDS SUMMARY | 2024-10-08 14:26 | XMS_ITS | Encounter Summary ---
Author Organization [employer] Address [address] [facility] 7t [place] [address] Care Team Providers Care Commercial Real Estate Lender Name Role Phone Chalo Lemos MD Primary Care Prov ider Reason for Visit * Reason Onset Date Comments Nurse Triage 04/03/2024 Encounter Details Date Type Department Care Team ([facility] st Contact Info) Description 04/03/2024 Telephone [facility] MED & PEDS [address] [place], [place] [phone] Chalo Lemos MD [address] [place], [place] [phone] Nurse Triage Social History Tobacco Use Types Packs/Day Years [...] encounter Miscellaneous Notes * Telephone Encounter - Angela Brasher RN - 04/03/2024 1:24 PM EDT Triage call Pt reports came home from work today after 3 hours due to bilateral hand pain. Left hand worse than right. Pt does repetitive movements with hands at work which is making pain unbearable.Pt has dx of carpel tunnel, tylenol 500mg and diclofenac 50mg are taken as prescribed, Pt does wearbraces at night time as well without relief. Pt is scheduled to see surgeon 04/09/24. Pt requests tosee provider to see if anything else could help this pain. ASK apt [facility] today at 340pm. Insurance is verified as active prior to booking. Protocol Used: Hand and Wrist Pain (Adult) Protocol-Based Disposition: See in Office or Video Visit within 3 Days Video visit not offered Positive Triage Questions: * Moderate pain (e.g., interferes with normal activities) and present > 3 days * Patient wants to be seen * All higher-acuity triage questions were negative Care Advice Discussed: * Reassurance and Education - Hand or Wrist Pain * Pain Medicines * Pain Medicines - Extra Notes and Warnings * Expected Course * Reasons To Call Back - Moderate pain (e.g., interferes with normal activities) lasts more than 3 days - Mild pain lasts more than 7 days - Signs of infection occur (e.g., spreading redness, warmth, fever) - You become worse * Use a Cold Pack for Pain * Use Heat After 48 Hours for Pain * Telephone Encounter - Shana Dozier - 04/03/2024 12:59 PM EDT Symptom: Hand or Wrist Pain - Not From Injury Outcome: Schedule an urgent appointment (within 1 hour) or talk to a nurse or provider soon Reason: Severe pain now The caller accepted this outcome documented in this encounter Plan of Treatment Not on file documented as of this encounter Visit Diagnoses Not on filedocumented in this encounter Care Teams Commercial Real Estate Lender Relationship Specialty Start Date End Date Chalo Lemos MD [address] [place] [id number] PCP - General Internal Medicine 05/14/20 documented as of this encounter
--- OUTSIDE RECORDS SUMMARY | 2024-10-08 14:26 | XMS_ITS | Encounter Summary ---
Author Organization [employer] Address [address] [facility] 7t [place] [address] Care Team Providers Care Sales Representative Meats Name Role Phone Chalo Lemos MD Primary Care Prov ider Reason for Visit * Reason Onset Date Comments No Show 10/07/2024 Encounter Details Date Type Department Care Team ([facility] Contact Info) Description 10/07/[address] [facility] MED & PEDS [address] [place], [place] [phone] Chalo Lemos MD [address] [place], [place] [phone] No Show Social History Tobacco Use Types Packs/Day Years [...] encounter Miscellaneous Notes * Telephone Encounter - Raciel Sampson - 10/07/2024 1:46 PM EST 10/07/24 no show documented in this encounter Plan of Treatment Not on file documented as of this encounter Visit Diagnoses Not on filedocumented in this encounter Care Teams Sales Representative Meats Relationship Specialty Start Date End Date Chalo Lemos MD [address] [place] [id number] PCP - General Internal Medicine 05/14/20 documented as of this encounter
--- OUTSIDE RECORDS SUMMARY | 2024-10-08 14:26 | XMS_ITS | Encounter Summary ---
Author Organization [employer] Address [address] [facility] 7t [place] [address] Care Team Providers Care Cutch Cleaner Name Role Phone Chalo Lemos MD Primary Care Prov ider Encounter Details Date Type Department Care Team ([facility] st Contact Info) Description 07/12/2024 Telephone [facility] CHC MED & PEDS [address] [place], [place] [phone] Chalo Lemos MD [address] [place] [address] Social History Tobacco Use Types Packs/Day Years Used Date Smoking Tobacco: Every Day Cigarettes 0.5 10 Smokeless Tobacco: Never Alcohol Use Standard Drinks/Week Comments Yes 4 (1 standard drink = 0.6 oz pur e alcohol) PHQ-2 Answer Date Recorded Patient Health Questionnaire-2 Score 0 05/11/2023 Housing Stability Answer Date Recorded What is your housing situation today? I have elyssa ale 07/04/[address] you li [...] on filedocumented in this encounter Care Teams Cutch Cleaner Relationship Specialty Start Date End Date Chalo Lemos MD [address] [place] [id number] PCP - General Internal Medicine 05/14/20 documented as of this encounter
--- OUTSIDE RECORDS SUMMARY | 2024-10-08 14:26 | XMS_ITS | Encounter Summary ---
Author Organization [employer] Address [address] [facility] 7t [place] [address] Care Team Providers Care Pmp Name Role Phone Chalo Lemos MD Primary Care Prov ider Reason for Visit * Reason Onset Date Comments Results 02/26/2024 Encounter Details Date Type Department Care Team ([facility] st Contact Info) Description 02/26/2024 Telephone [facility] MEDICINE [address] [place] [address] Chalo Lemos MD [address] [facility] [place] [address] Results Social History Tobacco Use Types Packs/Day Years [...] encounter Miscellaneous Notes * Telephone Encounter - Wing Belle RN - 02/27/2024 3:21 PM EDT Tc to pt to relay lab results from 02/22. Unable to reach pt, left message for pt to call back. * Telephone Encounter - Mary Vidales - 02/27/2024 8:53 AM EDT Tc from pt calling in regards to message above. * Telephone Encounter - Shelby Mahoney - 02/26/2024 12:05 PM EDT Tc from pt requesting a yunier back with lab results from 02/22 documented in this encounter Plan of Treatment Not on file documented as of this encounter Visit Diagnoses Not on filedocumented in this encounter Care Teams Pmp Relationship Specialty Start Date End Date Chalo Lemos MD [address] [place] [phone] PCP - General Internal Medicine 05/14/20 documented as of this encounter
--- OUTSIDE RECORDS SUMMARY | 2024-10-08 14:26 | XMS_ITS | Encounter Summary ---
Author Organization [employer] Address [address] [facility] [facility] [address] 7[address] [place] [address] Care Team Providers Care Rigging Man Name Role Phone Chalo Lemos MD Primary Care Prov ider Encounter Details Date Type Department Care Team (Latest Contact Info) Description 10/07/2024 Travel Social History Tobacco Use Types Packs/Day Years [...] on filedocumented in this encounter Care Teams Rigging Man Relationship Specialty Start Date End Date VelasquezChalo Guzmán MD [address] [place] [phone] PCP - General Internal Medicine 05/14/20 documented as of this encounter
--- OUTSIDE RECORDS SUMMARY | 2024-10-08 14:26 | XMS_ITS | Encounter Summary ---
Author Organization [employer] Address [address] [facility] 7t [place] [address] Care Team Providers Care Real Estate Recruiter Name Role Phone Chalo Lemos MD Primary Care Prov ider Reason for Visit * Reason Onset Date Comments Nurse Triage 07/12/2024 Encounter Details Date Type Department Care Team ([facility] st Contact Info) Description 07/12/2024 Telephone [facility] MED[facility]INE [address] [place], [place] [phone] Chalo Lemos MD [address] [facility] [place] [address] Nurse Triage Social History Tobacco Use Types [...] encounter Miscellaneous Notes * Telephone Encounter - Cheri Blood - 07/12/2024 9:26 AM EDT Tc from pt returning call. Cable Supervisor updated contact information. Contact pt at [phone] * Telephone Encounter - Dutch Claros - 07/12/2024 8:57 AM EDT Symptom: Runny Nose Outcome: Schedule an appointment to be seen within 24 hours Reason: Caller denied all higher acuity questions The caller accepted this outcome. documented in this encounter Plan of Treatment Not on file documented as of this encounter Visit Diagnoses Not on filedocumented in this encounter Care Teams Real Estate Recruiter Relationship Specialty Start Date End Date Chalo Lemos MD [address] [place] [phone] PCP - General Internal Medicine 05/14/20 documented as of this encounter
--- OUTSIDE RECORDS SUMMARY | 2024-10-08 14:26 | XMS_ITS | Encounter Summary ---
Author Organization [employer] Address [address] [facility] 7t [place] [address] Care Team Providers Care Primary Care Nurse Name Role Phone Chalo Lemos MD Primary Care Prov ider Reason for Visit * Reason Onset Date Comments Call Back Request 02/27/2024 Encounter Details Date Type Department Care Team ([facility] st Contact Info) Description 02/27/2024 Telephone [facility] MED[facility]INE [address] [employer], [place] [phone] Chalo Lemos MD [address] [facility] [address] [place] [phone] Call Back Request Social History Tobacco Use Types Packs/Day Years [...] Encounter - Wing Belle RN - 02/27/2024 4:36 PM EDT Tc to pt to both address lab results form 02/22 in separate pt call and this concern about pain medication. Reported to pt that all labs were normal and reviewed by Dr. Arias. Pt also requesting excuse letter from work today due to pain in both hands making work difficult. Discussed with Dr. Arias who stated he would prescribed diclofenac and agreed to the excuse letter. Stated to pt that letter could be picked up at [facility] on 02/28. Pt verbalized understanding and agreement with plan. * Telephone Encounter - Joce Ness - 02/27/2024 12:06 PM EDT Tc from patient calling in regards to the message below * Telephone Encounter - Mary Vidales - 02/27/2024 8:54 AM EDT Tc from pt requesting stronger pain medication. States tylenol and motrin is not helping for hand pain. Pt was seen on 02/22 for pain in hands. documented in this encounter Plan of Treatment Not on file documented as of this encounter Visit Diagnoses Not on filedocumented in this encounter Care Teams Primary Care Nurse Relationship Specialty Start Date End Date Chalo Lemos MD [address] [place] [phone] PCP - General Internal Medicine 05/14/20 documented as of this encounter
--- OUTSIDE RECORDS SUMMARY | 2024-10-08 14:26 | XMS_ITS | Encounter Summary ---
Author Organization [employer] Address [address] [facility] 7t [place] [address] Care Team Providers Care Addiction Counselor Name Role Phone Chalo Lemos MD Primary Care Prov ider Encounter Details Date Type Department Care Team ([facility] st Contact Info) Description 02/21/2023 Orders Only [facility] MED & PEDS [address] [place] [address] Chalo Lemos MD 505 [place] [address] Social History Tobacco Use Types Packs/Day Years Used Date Smoking Tobacco: Every Day Cigarettes 0.5 10 Smokeless Tobacco: Never Alcohol Use Standard Drinks/Week Comments Yes 4 (1 standard drink = 0.6 oz pur e alcohol) Comments Unknown Sex and Gender Information Value Date Recorded Sex Assigned at Female 07/11/2022 10:37 AM EDT Legal Sex Female 10:37 AM EDT Gender Identity Female 07/11/2022 10:37 AM EDT Sexual Orientation Straight 07/11/2022 10 :37 AM EDT documented as of this encounter Plan of Treatment Pending Results Name Type Priority Associated Diagnoses Date /Time Vitamin B1 Lab Routine 06/15/2023 12: 29 PM EDT documented as of this encounter Procedures Procedure Name Priority Date/Time Associated Diagnosis Comments HELICOBACTER PYLORI, UREA BREATH TEST Routine 07/26/2023 10:14 AM EST HELICOBACTER PYLORI, UREA BREATH TEST Routine 06/15/2023 1:50 PM EDT VITAMIN D,25-OH,TOTAL,IA Routine 06/15/2023 12:29 PM EDT VITAMIN B12/FOLATE, SERUM PANEL Routine 06/15/2023 12:29 PM EDT TSH W/REFLEX TO FT4 Routine 06/15/2023 1 2:29 PM EDT CBC WITH AUTO DIFFERENTIAL Routine 06/15/2023 12:29 PM EDT IRON AND TOTAL IRON BINDING CAPACITY Routine 06/15/2023 12:29 PM EDT INSULIN Routine 06/15/2023 12:29 PM EDT ZINC Routine 06/15/2023 12:29 PM EDT VITAMIN A Routine 06/15/2023 12:29 PM EDT C-REACTIVE PROTEIN Routine 06/15/2023 12 :29 PM EDT VITAMIN B1 Routine 06/15/2023 12:29 PM EDT VITAMIN B1 Routine 06/15/2023 12:29 PM EDT PTH, INTACT WITHOUT CALCIUM Routine 06/15/2023 12:29 PM EDT HEMOGLOBIN A1C Routine 06/15/2023 12:29 PM EDT FERRITIN Routine 06/15/2023 12:29 PM EDT LIPID PANEL, STANDARD Routine 06/15/2023 12:29 PM EDT COMPREHENSIVE METABOLIC PANEL Routine 06/15/2023 12:29 PM EDT documented in this encounter Results * Helicobacter pylori, Urea Breath Test (07/26/2023 10:14 AM EST) H. pylori Breath Test Positive Negative [facility] Comment:Antimicrobials, prot on pump inhibitors and bismuthpreparations are known to suppress H. pylori. Ingestingthese medications within two weeks prior to performing thebreath test may produce negative test results. A positiveresult is still clinically valid. 07/26/2023 10:1 4 AM EST 07/26/2023 7:19 PM EST Generic External Data Provider LAB BLOOD ORDERAB LES Final Result Performing Organization Address City/[facility]/ZIP Co de Phone Number [facility] [address] [place] [phone] * Helicobacter pylori, Urea Breath Test (06/15/2023 1:50 PM EDT) H. pylori Breath Test TNP Negative [facility] Comment:Duplicate order/Orde red in error 06/15/2023 1:50 PM EDT 06/16/2023 1:51 PM EDT [facility] External Provider LAB BLO OD ORDERABLES Final Result Performing Organization Address [facility] Co de Phone Number [facility] [address] [place] [phone] * Vitamin B1 (06/15/2023 12:29 PM EDT) Vitamin B1 8 8 - 30 nmol/L [facility] Comment:Vitamin supplementat ion within 24 hours prior toblood draw may affect the accuracy of the results.This test was developed and its analytical performancecharacteristics have been determined by [employer] [place], [place]. It hasnot been cleared or approved by the U.S. Food and DrugAdministration. This assay has been validated pursuantto the CLIA regulations and is used for clinicalpurposes.THIS TEST WAS PERFORMED AT:[employer] [place] [id number] SHEA MD,PHD 06/15/2023 12:2 9 PM EDT 06/15/2023 12:34 PM EDT Generic External Data Provider LAB BLOOD ORDERAB LES Final Result Performing Organization Address [facility] Co de Phone Number [facility] [address] [place] [phone] * (ABNORMAL) Vitamin A (06/15/2023 12:29 PM EDT) Vitamin A (Retinol) 36(A) 38 - 98 mcg/dL [facility] Comment:Vitamin supplementat ion within 24 hours prior toblood draw may affect the accuracy of the results.This test was developed and its analytical performancecharacteristics have been determined by [employer] [place], [place]. It hasnot been cleared or approved by the U.S. Food and DrugAdministration. This assay has been validated pursuantto the CLIA regulations and is used for clinicalpurposes.THIS TEST WAS PERFORMED AT:[employer] [id number] [place] [id number] SHEA MD,PHD 06/15/2023 12:2 9 PM EDT 06/15/2023 12:34 PM EDT [facility] External Provider LAB BLO OD ORDERABLES Final Result Performing Organization Address [facility] Co de Phone Number [facility] [address] [place] [phone] * Zinc (06/15/2023 12:29 PM EDT) Zinc 60 60 - 130 mcg/dL [facility] Comment:This test was develo ped and its analytical performancecharacteristics have been determined by [employer] [place], [place]. It hasnot been cleared or approved by the U.S. Food and DrugAdministration. This assay has been validated pursuantto the CLIA regulations and is used for clinicalpurposes.THIS TEST WAS PERFORMED AT:[employer] [id number] [place] [address]ZGIXFXESARATH SHEA MD,PHD 06/15/2023 12:2 9 PM EDT 06/15/2023 12:34 PM EDT [facility] External Provider LAB BLO OD ORDERABLES Final Result Performing Organization Address City/[facility]/ZIP Co de Phone Number [facility] [address] [place] [phone] * PTH, Intact Without Calcium (06/15/2023 12:29 PM EDT) PTHI 27 16 - 77 pg/mL [facility] Comment:Interpretive Guide I ntact PTH Calcium -------Normal Parathyroid Normal NormalHypoparathyroidism Low or Low Normal LowHyperparathyroidism Primary Normal or High High Secondary High Normal or Low Tertiary High HighNon-Parathyroid Hypercalcemia Low or Low Normal High Calcium (PTHI) 9.4 8.6 - 10.2 mg/dL [facility] Comment:THIS TEST WAS PERFOR MED AT:[employer] [place] [id number] LUCAS MD 06/15/2023 12:2 9 PM EDT 06/15/2023 12:34 PM EDT [facility] External Provider LAB BLO OD ORDERABLES Final Result Performing Organization Address City/[facility]/ZIP Co de Phone Number [facility] [address] [place] [phone] * Vitamin B12/Folate, Serum Panel (06/15/2023 12:29 PM EDT) Vitamin B12 660 200 - 900 pg/mL [facility] Comment:NORMAL 200-900 PG/ML INDETERMINATE 160-199 PG/ML DEFICIENT < 160 PG/ML Folate 9.4 > or = 4.0 ng/mL [facility] Comment:Reference Values:> o r = 4.0 ng/mL< 4.0 ng/mL suggests folate deficiency Methotrexate, aminopterin and folinic acid(leucovorin) are chemotherapeutic agents whose molecularstructures are similar to folate; therefore, the Architectfolate assay cannot be used for patients using these drugs. 06/15/2023 12:2 9 PM EDT 06/15/2023 12:34 PM EDT [facility] External Provider LAB BLO OD ORDERABLES Final Result Performing Organization Address [facility] Co de Phone Number [facility] [address] [place] [phone] * Insulin (06/15/2023 12:29 PM EDT) Insulin 10 2 - 29 uU/mL [facility] Comment:This test was perfor med using the Ivncent chemiluminescentmethod. Values obtained from different assay methods cannot beused interchangeably. This insulin assay shows a possiblecross-reactivity with antibodies generated against insulin(immunoreactive insulin and some patients treated withbovine or porcine insulin). Insulin levels may be measuredlower in patients with insulin autoimmune syndrome orfamilial high pro-insulinemia. 06/15/2023 12:2 9 PM EDT 06/15/2023 12:34 PM EDT Generic External Data Provider LAB BLOOD ORDERAB LES Final Result Performing Organization Address [facility]/ZIP Co de Phone Number [facility] [address] [place] [phone] * TSH W/Reflex to FT4 (06/15/2023 12:29 PM EDT) TSH reflex Free T4 1.51 0.32 - 4.0 uIU/mL [facility] 06/15/2023 12:2 9 PM EDT 06/15/2023 12:34 PM EDT us Generic External Data Provider LAB BLOOD ORDERAB LES Final Result Performing Organization Address City/[facility]/ZIP Co de Phone Number [facility] [address] [place] [phone] * Vitamin D, 25-Hydroxy, Total, Immunoassay (06/15/2023 12:29 PM EDT) Vitamin D 25-OH Total 31.2 >30 ng/mL [facility] Comment:Health Based Referen ce Values*< 20 ng/mL [id number] ng/mL Insufficient> 30 ng/mL Sufficient*Jackelin GORMAN. N Engl J Med. 2007;357:266-280Care must be taken in interpreting Vitamin D results fromdifferent laboratories and methodologies. Published datademonstrated that results from patients undergoinghemodialysis may show a negative bias when tested withvarious automated 25-OH vitamin D assays when compared toLC-MS/MS.When testing samples from patients whose predominant form ofVitamin D is Vitamin D2, such as patients receiving VitaminD2 supplementation, results that are subtherapeutic shouldbe confirmed with another method such as LC-MS/MS. 06/15/2023 12:2 9 PM EDT 06/15/2023 12:34 PM EDT us Generic External Data Provider LAB BLOOD ORDERAB LES Final Result Performing Organization Address [facility]/ZIP Co de Phone Number [facility] [address] [place] [phone] * Ferritin (06/15/2023 12:29 PM EDT) Ferritin 24 10 - 122 ng/mL [facility] 06/15/2023 12:2 9 PM EDT 06/15/2023 12:34 PM EDT us Generic External Data Provider LAB BLOOD ORDERAB LES Final Result Performing Organization Address City/[facility]/ZIP Co de Phone Number [facility] [address] [place] [phone] * (ABNORMAL) Lipid Panel, Standard (06/15/2023 12:29 PM EDT) Triglycerides 103 <150 mg/dL [facility] Comment:Desirable Triglyceri de: less than 150 mg/dLBorderline High Triglyceride 150-199 mg/dLHigh Triglyceride: 200-499 mg/dLVery High Triglyceride: greater than or equal to 5OO mg/dL Cholesterol 163 <200 mg/dL [facility] Comment:Desirable Cholestero l: less than 200 mg/dLBorderline High Cholesterol: 200-239 mg/dLHigh Cholesterol: greater than 239 mg/dL LDL Cholesterol Calculated 111(H) <100 mg/dL [facility] Comment:Desirable LDL: less than 100 mg/dLNear Optimal/Above Optimal LDL: 110- 129 mg/dLBorderline High LDL: 130-159 mg/dLHigh LDL: 160-189 mg/dLVery High LDL: greater than or equal to 190 mg/dL HDL Cholesterol 32(L) >40 mg/dL [facility] Comment:Desirable HDL: great er than 40 mg/dL Note: This HDL assay may give artificially low results in patients with liver disease. 06/15/2023 12:2 9 PM EDT 06/15/2023 12:34 PM EDT us Generic External Data Provider LAB BLOOD ORDERAB LES Final Result [facility] [address] [place] [phone] * (ABNORMAL) C-reactive Protein (06/15/2023 12:29 PM EDT) C Reactive Protein 1.56(H) < or = 0.50 mg/dL [facility] 06/15/2023 12:2 9 PM EDT 06/15/2023 12:34 PM EDT us Generic External Data Provider LAB BLOOD ORDERAB LES Final Result Performing Organization Address [facility]/ZIP Co de Phone Number [facility] [address] [place] [phone] * (ABNORMAL) Iron And Total Iron Binding Capacity (06/15/2023 12:29 PM EDT) Iron 31 30 - 160 mcg/dL [facility] Total Iron Binding Capacity 402 228 - 428 mcg/dL [facility] Percent Iron Saturation 8(L) 15 - 50 % [facility] Unsaturated Iron Binding 371 ug/dL [facility] 06/15/2023 12:2 9 PM EDT 06/15/2023 12:34 PM EDT us Generic External Data Provider LAB BLOOD ORDERAB LES Final Result Performing Organization Address [facility] Co de Phone Number [facility] [address] [place] [phone] * (ABNORMAL) Comprehensive Metabolic Panel (06/15/2023 12:29 PM EDT) Sodium 138 135 - 145 mmol/L [facility] Potassium 3.9 3.3 - 5.1 mmol/L [facility] Chloride 104 96 - 108 mmol/L [facility] Carbon Dioxide 23 22 - 29 mmol/L [facility] Anion Gap 15 12 - 20 [facility] Urea Nitrogen (BUN) 8(L) 9 - 16 mg/dL [facility] Creatinine, Serum 0.59 0.5 - 1.4 mg/dL [facility] Estimated Glomerular Filt Rate >60 [facility] Comment:NOTE: For -Am erican individuals, multiply the result by 1.210.Chronic Kidney Disease: Estimated GFR < 60 mL/min/1.46s7Duwmeu Kidney Disease: Estimated GFR < 15 mL/min/1.73m2 Glucose 87 60 - 115 mg/dL [facility] Calcium 9.7 8.4 - 10.2 mg/dL [facility] Bilirubin, Total 0.2 0.0 - 1.0 mg/dL [facility] Aspartate Amino Transferase 23 5 - 31 U/L [facility] Alanine Aminotransferase 32(H) 0 - 31 U/L [facility] Total Protein 7.0 6.5 - 8.0 g/dL [facility] Albumin Level 3.9 3.5 - 5.0 g/dL [facility] Alkaline Phosphatase 77 39 - 117 U/L [facility] 06/15/2023 12:2 9 PM EDT 06/15/2023 12:34 PM EDT [facility] External Provider LAB BLO OD ORDERABLES Final Result Performing Organization Address [facility]/ZIP Co de Phone Number [facility] [address] [place] [phone] * Hemoglobin A1c (06/15/2023 12:29 PM EDT) Hemoglobin A1c 5.2 <6.0 % [facility] Comment:Hemoglobin A1C Refer ence Range Adults: 4.8 - 6.0 % Non diabetic: < 6.0 % Goal: < 7.0 %Additional Action Suggested: > 8.0 %Note: Hemoglobin A1c results are invalid for patients with abnormal amounts of HbF. Blood transfusions may impact the HbA1c concentration in the patient sample. Estimated Average Glucose 103 mg/dL [facility] Comment:eAG = Estimated ave rage glucose which is %A1C expressed asaverage glucose, using the formula of the H9G-FxebtgrIaqtrdr Glucose study (ADAG), Diabetes Care, Vol.31,#8,Apr. 2007 06/15/2023 12:2 9 PM EDT 06/15/2023 12:34 PM EDT [facility] External Provider LAB BLO OD ORDERABLES Final Result Performing Organization Address [facility] Co de Phone Number [facility] [address] [place] [phone] * (ABNORMAL) CBC auto differential (06/15/2023 12:29 PM EDT) White Blood Count 12.2(H) 4.8 - 10.8 X10*3/uL [facility] Red Blood Count 4.78 4.20 - 5.50 X10*6/uL [facility] Hemoglobin 12.4 12.0 - 16.0 g/dl [facility] Hematocrit 38.7 37.0 - 47.0 % [facility] Mean Corpuscular Volume 81.0 80.0 - 98.0 fL [facility] Mean Corpuscular Hemoglobin 25.9(L) 27.0 - 33.0 pg [facility] Mean Corpuscular HGB Conc 32.0 31.0 - 35.0 g/dl [facility] Red Cell Distribution Width 15.0 11.0 - 16.0 % [facility] Platelet Count 382 160 - 400 X10*3/uL [facility] Mean Platelet Volume 10.4 9.4 - 12.3 fL [facility] Neutrophils Percent Auto 66.0 45 - 73 % [facility] Imm Gran Pct Auto 0.3 0.0 - 0.4 % [facility] Lymphocytes Percent Auto 26.4 20 - 40 % [facility] Monocytes Percent Auto 5.5 2 - 11 % [facility] Eosinophils Percent Auto 1.6 0 - 4 % [facility] Basophils Percent Auto 0.2 0 - 2 % [facility] NRBC Pct Auto 0.0 0.0 - 0.2 /100WBC [facility] Neutrophils Absolute Auto 8.1 2.0 - 8.3 x10*3/uL [facility] Imm Gran Abs Auto 0.04(H) 0.00 - 0.03 X10*3/uL [facility] Lymphocytes Absolute Auto 3.2 1.2 - 4.9 X10*3/uL [facility] Monocytes Absolute Auto 0.7 0.1 - 1.2 X10*3/uL [facility] Eosinophils Absolute Auto 0.2 0.0 - 0.4 X10*3/uL [facility] Basophils Absolute Auto 0.0 0.0 - 0.2 X10*3/uL [facility] NRBC Abs Auto 0.000 0.0 - 0.012 X10*3/uL [facility] 06/15/2023 12:2 9 PM EDT 06/15/2023 12:34 PM EDT us [facility] External Provider LAB BLO OD ORDERABLES Final Result Performing Organization Address City/State/[facility] Co de Phone Number [facility] [address] [place] [phone] documented in this encounter Visit Diagnoses Not on filedocumented in this encounter Care Teams Addiction Counselor Relationship Specialty Start Date End Date Chalo Lemos MD [address] [place] [phone] PCP - General Internal Medicine 05/14/20 documented as of this encounter
--- OUTSIDE RECORDS SUMMARY | 2024-10-08 14:26 | XMS_ITS | Encounter Summary ---
Author Organization [employer] Address [address] [facility] 7t [place] [address] Care Team Providers Care Business Management Professor Name Role Phone Chalo Lemos MD Primary Care Prov ider Encounter Details Date Type Department Care Team ([facility] st Contact Info) Description 02/27/2024 Orders Only [facility] MED [facility]S [address] [place], [place] [phone] Lyn Arias MD [address] [place], [place] [phone] Bilateral carpal tunnel syndrome (Primary Dx) Social History Tobacco Use Types Packs/Day Years [...] documented as of this encounter Visit Diagnoses Diagnosis Bilateral carpal tunnel syndrome- Primary Carpal tunnel syndrome documented in this encounter Care Teams Business Management Professor Relationship Specialty Start Date End Date Chalo Lemos MD [address] [place] [phone] PCP - General Internal Medicine 05/14/20 documented as of this encounter
== END 2024-10-08 13:43 | disposition home or self-care (01) ==
PROVIDERS: PCP Internal Medicine
DX: G56.02 Carpal tunnel syndrome, left upper limb (principal)
CPT/HCPCS: 99024

== ENCOUNTER → 2024-10-08 13:25 | Outpatient (BNVA) | payer MEDICAID, SELFPAY | PROVIDERS: PCP Internal Medicine | DX: Z48.811 Encounter for surgical aftercare following surgery on the nervous system (principal); Z98.890 Other specified postprocedural states | CPT/HCPCS: 99212 ==

== ENCOUNTER → 2024-10-16 11:17 | Outpatient (BNVA) | payer MEDICAID, SELFPAY | PROVIDERS: PCP Internal Medicine | DX: G56.03 Carpal tunnel syndrome, bilateral upper limbs (principal) | CPT/HCPCS: 99212 ==

== ENCOUNTER 2024-12-31 08:18 | Day surgery (SDC) | payer MEDICAID, SELFPAY ==
--- OUTSIDE RECORDS SUMMARY | 2024-11-13 15:50 | XMS_ITS | Encounter Summary ---
Author Organization [employer] Address [address] [place] [address] Care Team Providers Care Senior Mechanical Technician Name Role Phone Chalo Lemos MD Primary Care Prov ider Encounter Details Date Type Department Care Team ([facility] st Contact Info) Description 02/21/2023 Orders Only [facility] MED & PEDS [address] [place] [address] Chalo Lemos MD [address] [place] [address] Social History Tobacco Use Types Packs/Day Years [...] EST) H. pylori Breath Test Positive Negative [facility] Comment:Antimicrobials, prot on pump inhibitors and bismuthpreparations are known to suppress H. pylori. Ingestingthese medications within two weeks prior to performing thebreath test may produce negative test results. A positiveresult is still clinically valid. 07/26/2023 10:1 4 AM EST 07/26/2023 7:19 PM EST Generic External Data Provider LAB BLOOD ORDERAB LES Final Result Performing Organization Address City/[facility]/ZIP Co de Phone Number [facility] [address] [place] [phone] * Helicobacter pylori, Urea Breath Test (06/15/2023 1:50 PM EDT) H. pylori Breath Test TNP Negative [facility] Comment:Duplicate order/Orde red in error 06/15/2023 1:50 PM EDT 06/16/2023 1:51 PM EDT [facility] External Provider LAB BLO OD ORDERABLES Final Result Performing Organization Address [facility] Co de Phone Number [facility] [address] [place] [phone] * Vitamin B1 (06/15/2023 12:29 PM EDT) Vitamin B1 8 8 - 30 nmol/L [facility] Comment:Vitamin supplementat ion within 24 hours prior toblood draw may affect the accuracy of the results.This test was developed and its analytical performancecharacteristics have been determined by [facility] [place], [place]. It hasnot been cleared or approved by the U.S. Food and DrugAdministration. This assay has been validated pursuantto the CLIA regulations and is used for clinicalpurposes.THIS TEST WAS PERFORMED AT:[employer] [place]/[facility] [place] [id number] SHEA MD,PHD 06/15/2023 12:2 9 PM EDT 06/15/2023 12:34 PM EDT Generic External Data Provider LAB BLOOD ORDERAB LES Final Result Performing Organization Address [facility] Co de Phone Number [facility] [address] [place] [phone] * (ABNORMAL) Vitamin A (06/15/2023 12:29 PM EDT) Vitamin A (Retinol) 36(A) 38 - 98 mcg/dL [facility] Comment:Vitamin supplementat ion within 24 hours prior toblood draw may affect the accuracy of the results.This test was developed and its analytical performancecharacteristics have been determined by [facility] [place], [place]. It hasnot been cleared or approved by the U.S. Food and DrugAdministration. This assay has been validated pursuantto the CLIA regulations and is used for clinicalpurposes.THIS TEST WAS PERFORMED AT:[employer] [place]/[facility] [employer] [id number] [place] [id number] SHEA MD,PHD 06/15/2023 12:2 9 PM EDT 06/15/2023 12:34 PM EDT [facility] External Provider LAB BLO OD ORDERABLES Final Result Performing Organization Address [facility] Co de Phone Number [facility] [address] [place] [phone] * Zinc (06/15/2023 12:29 PM EDT) Zinc 60 60 - 130 mcg/dL [facility] Comment:This test was develo ped and its analytical performancecharacteristics have been determined by [facility] [place], [place]. It hasnot been cleared or approved by the U.S. Food and DrugAdministration. This assay has been validated pursuantto the CLIA regulations and is used for clinicalpurposes.THIS TEST WAS PERFORMED AT:[employer] [place]/[facility] [id number] [place] [address]TLECVZISARATH SHEA MD,PHD 06/15/2023 12:2 9 PM EDT 06/15/2023 12:34 PM EDT [facility] External Provider LAB BLO OD ORDERABLES Final Result Performing Organization Address City/[facility]/ZIP Co de Phone Number [facility] [address] [place] [phone] * PTH, Intact Without Calcium (06/15/2023 12:29 PM EDT) PTHI 27 16 - 77 pg/mL [facility] Comment:Interpretive Guide I ntact PTH Calcium -------Normal Parathyroid Normal NormalHypoparathyroidism Low or Low Normal LowHyperparathyroidism Primary Normal or High High Secondary High Normal or Low Tertiary High HighNon-Parathyroid Hypercalcemia Low or Low Normal High Calcium (PTHI) 9.4 8.6 - 10.2 mg/dL [facility] Comment:THIS TEST WAS PERFOR MED AT:[employer] [place] [id number] LUCAS MD 06/15/2023 12:2 9 PM EDT 06/15/2023 12:34 PM EDT [facility] External Provider LAB BLO OD ORDERABLES Final Result Performing Organization Address City/[facility]/ZIP Co de Phone Number [facility] [address] [place] [phone] * Vitamin B12/Folate, Serum Panel (06/15/2023 12:29 PM EDT) Vitamin B12 660 200 - 900 pg/mL [facility] Comment:NORMAL 200-900 PG/ML INDETERMINATE 160-199 PG/ML DEFICIENT < 160 PG/ML Folate 9.4 > or = 4.0 ng/mL [facility] Comment:Reference Values:> o r = 4.0 ng/mL< 4.0 ng/mL suggests folate deficiency Methotrexate, aminopterin and folinic acid(leucovorin) are chemotherapeutic agents whose molecularstructures are similar to folate; therefore, the Architectfolate assay cannot be used for patients using these drugs. 06/15/2023 12:2 9 PM EDT 06/15/2023 12:34 PM EDT [facility] External Provider LAB BLO OD ORDERABLES Final Result Performing Organization Address [facility] Co de Phone Number [facility] [address] [place] [phone] * Insulin (06/15/2023 12:29 PM EDT) Insulin 10 2 - 29 uU/mL [facility] Comment:This test was perfor med using the Vincent chemiluminescentmethod. Values obtained from different assay methods [...] ORDERAB LES Final Result Performing Organization Address [facility]/ZIP Co de Phone Number [facility] [address] [place] [phone] * TSH W/Reflex to FT4 (06/15/2023 12:29 PM EDT) TSH reflex Free T4 1.51 0.32 - 4.0 uIU/mL [facility] 06/15/2023 12:2 9 PM EDT 06/15/2023 12:34 PM EDT us Generic External Data Provider LAB BLOOD ORDERAB LES Final Result Performing Organization Address City/[facility]/ZIP Co de Phone Number [facility] [address] [place] [phone] * Vitamin D, 25-Hydroxy, Total, Immunoassay (06/15/2023 12:29 PM EDT) Vitamin D 25-OH Total 31.2 >30 ng/mL [facility] Comment:Health Based Referen ce Values*< 20 ng/mL Hhnkuxlgd38-92 ng/mL Insufficient> 30 ng/mL Sufficient*Jackelin GORMAN. N [...] ORDERAB LES Final Result Performing Organization Address [facility]/ZIP Co de Phone Number [facility] [address] [place] [phone] * Ferritin (06/15/2023 12:29 PM EDT) Ferritin 24 10 - 122 ng/mL [facility] 06/15/2023 12:2 9 PM EDT 06/15/2023 12:34 PM EDT us Generic External Data Provider LAB BLOOD ORDERAB LES Final Result Performing Organization Address City/[facility]/ZIP Co de Phone Number [facility] [address] [place] [phone] * (ABNORMAL) Lipid Panel, Standard (06/15/2023 12:29 PM EDT) Triglycerides 103 <150 mg/dL [facility] Comment:Desirable Triglyceri de: less than 150 mg/dLBorderline High Triglyceride 150-199 mg/dLHigh Triglyceride: 200-499 mg/dLVery High Triglyceride: greater than or equal to 5OO mg/dL Cholesterol 163 <200 mg/dL [facility] Comment:Desirable Cholestero l: less than 200 mg/dLBorderline High Cholesterol: 200-239 mg/dLHigh Cholesterol: greater than 239 mg/dL LDL Cholesterol Calculated 111(H) <100 mg/dL [facility] Comment:Desirable LDL: less than 100 mg/dLNear Optimal/Above Optimal LDL: 110- 129 mg/dLBorderline High LDL: 130-159 mg/dLHigh LDL: 160-189 mg/dLVery High LDL: greater than or equal to 190 mg/dL HDL Cholesterol 32(L) >40 mg/dL [facility] Comment:Desirable HDL: great er than 40 mg/dL Note: This HDL assay may give artificially low results in patients with liver disease. 06/15/2023 12:2 9 PM EDT 06/15/2023 12:34 PM EDT us Generic External Data Provider LAB BLOOD ORDERAB LES Final Result [facility] [address] [place] [phone] * (ABNORMAL) C-reactive Protein (06/15/2023 12:29 PM EDT) C Reactive Protein 1.56(H) < or = 0.50 mg/dL [facility] 06/15/2023 12:2 9 PM EDT 06/15/2023 12:34 PM EDT us Generic External Data Provider LAB BLOOD ORDERAB LES Final Result Performing Organization Address [facility]/ZIP Co de Phone Number [facility] [address] [place] [phone] * (ABNORMAL) Iron And Total Iron Binding Capacity (06/15/2023 12:29 PM EDT) Iron 31 30 - 160 mcg/dL [facility] Total Iron Binding Capacity 402 228 - 428 mcg/dL [facility] Percent Iron Saturation 8(L) 15 - 50 % [facility] Unsaturated Iron Binding 371 ug/dL [facility] 06/15/2023 12:2 9 PM EDT 06/15/2023 12:34 PM EDT us Generic External Data Provider LAB BLOOD ORDERAB LES Final Result Performing Organization Address [facility] Co de Phone Number [facility] [address] [place] [phone] * (ABNORMAL) Comprehensive Metabolic Panel (06/15/2023 12:29 PM EDT) Sodium 138 135 - 145 mmol/L [facility] Potassium 3.9 3.3 - 5.1 mmol/L [facility] Chloride 104 96 - 108 mmol/L [facility] Carbon Dioxide 23 22 - 29 mmol/L [facility] Anion Gap 15 12 - 20 [facility] Urea Nitrogen (BUN) 8(L) 9 - 16 mg/dL [facility] Creatinine, Serum 0.59 0.5 - 1.4 mg/dL [facility] Estimated Glomerular Filt Rate >60 [facility] Comment:NOTE: For -Am erican individuals, multiply the result by 1.210.Chronic Kidney Disease: Estimated GFR < 60 mL/min/1.02r2Dzhpkw Kidney Disease: Estimated GFR < 15 mL/min/1.73m2 Glucose 87 60 - 115 mg/dL [facility] Calcium 9.7 8.4 - 10.2 mg/dL [facility] Bilirubin, Total 0.2 0.0 - 1.0 mg/dL [facility] Aspartate Amino Transferase 23 5 - 31 U/L [facility] Alanine Aminotransferase 32(H) 0 - 31 U/L [facility] Total Protein 7.0 6.5 - 8.0 g/dL [facility] Albumin Level 3.9 3.5 - 5.0 g/dL [facility] Alkaline Phosphatase 77 39 - 117 U/L [facility] 06/15/2023 12:2 9 PM EDT 06/15/2023 12:34 PM EDT [facility] External Provider LAB BLO OD ORDERABLES Final Result Performing Organization Address [facility]/ZIP Co de Phone Number [facility] [address] [place] [phone] * Hemoglobin A1c (06/15/2023 12:29 PM EDT) Hemoglobin A1c 5.2 <6.0 % [facility] Comment:Hemoglobin A1C Refer ence Range Adults: 4.8 - 6.0 % Non diabetic: < 6.0 % Goal: < 7.0 %Additional Action Suggested: > 8.0 %Note: Hemoglobin A1c results are invalid for patients with abnormal amounts of HbF. Blood transfusions may impact the HbA1c concentration in the patient sample. Estimated Average Glucose 103 mg/dL [facility] Comment:eAG = Estimated ave rage glucose which is %A1C expressed asaverage glucose, using the formula of the A1V-EpvferyZmkkpso Glucose study (ADAG), Diabetes Care, Vol.31,#8,Apr. 2007 06/15/2023 12:2 9 PM EDT 06/15/2023 12:34 PM EDT [facility] External Provider LAB BLO OD ORDERABLES Final Result Performing Organization Address [facility] Co de Phone Number [facility] [address] [place] [phone] * (ABNORMAL) CBC auto differential (06/15/2023 12:29 PM EDT) White Blood Count 12.2(H) 4.8 - 10.8 X10*3/uL [facility] Red Blood Count 4.78 4.20 - 5.50 X10*6/uL [facility] Hemoglobin 12.4 12.0 - 16.0 g/dl [facility] Hematocrit 38.7 37.0 - 47.0 % [facility] Mean Corpuscular Volume 81.0 80.0 - 98.0 fL [facility] Mean Corpuscular Hemoglobin 25.9(L) 27.0 - 33.0 pg [facility] Mean Corpuscular HGB Conc 32.0 31.0 - 35.0 g/dl [facility] Red Cell Distribution Width 15.0 11.0 - 16.0 % [facility] Platelet Count 382 160 - 400 X10*3/uL [facility] Mean Platelet Volume 10.4 9.4 - 12.3 fL [facility] Neutrophils Percent Auto 66.0 45 - 73 % [facility] Imm Gran Pct Auto 0.3 0.0 - 0.4 % [facility] Lymphocytes Percent Auto 26.4 20 - 40 % [facility] Monocytes Percent Auto 5.5 2 - 11 % [facility] Eosinophils Percent Auto 1.6 0 - 4 % [facility] Basophils Percent Auto 0.2 0 - 2 % [facility] NRBC Pct Auto 0.0 0.0 - 0.2 /100WBC [facility] Neutrophils Absolute Auto 8.1 2.0 - 8.3 x10*3/uL [facility] Imm Gran Abs Auto 0.04(H) 0.00 - 0.03 X10*3/uL [facility] Lymphocytes Absolute Auto 3.2 1.2 - 4.9 X10*3/uL [facility] Monocytes Absolute Auto 0.7 0.1 - 1.2 X10*3/uL [facility] Eosinophils Absolute Auto 0.2 0.0 - 0.4 X10*3/uL [facility] Basophils Absolute Auto 0.0 0.0 - 0.2 X10*3/uL [facility] NRBC Abs Auto 0.000 0.0 - 0.012 X10*3/uL [facility] 06/15/2023 12:2 9 PM EDT 06/15/2023 12:34 PM EDT us [facility] External Provider LAB BLO OD ORDERABLES Final Result Performing Organization Address City/State/[facility] Co de Phone Number [facility] [address] [place] [phone] documented in this encounter Visit Diagnoses Not on filedocumented in this encounter Care Teams Senior Mechanical Technician Relationship Specialty Start Date End Date Chalo Lemos MD [address] [place] [phone] PCP - General Internal Medicine 05/14/20 documented as of this encounter
--- OUTSIDE RECORDS SUMMARY | 2024-11-13 15:50 | XMS_ITS | Encounter Summary ---
Author Organization [employer] Address [address] [facility] 7t [place] [address] Care Team Providers Care Drum Filler Name Role Phone Chalo Lemos MD Primary Care Prov ider Reason for Visit * Reason Onset Date Comments Results 02/26/2024 Encounter Details Date Type Department Care Team ([facility] st Contact Info) Description 02/26/2024 Telephone [facility] MEDICINE [address] [place] [address] Chalo Lemos MD [address] [place] [phone] Results Social History Tobacco Use Types Packs/Day [...] on filedocumented in this encounter Care Teams Drum Filler Relationship Specialty Start Date End Date Chalo Lemos MD [address] [place] [phone] PCP - General Internal Medicine 05/14/20 documented as of this encounter
--- OUTSIDE RECORDS SUMMARY | 2024-11-13 15:51 | XMS_ITS | Clinical Summary ---
Author Organization [employer] Address [address] [facility] 7t [place] [address] Care Team Providers Care Customer Service Advisor Name Role Phone Chalo Lemos MD Primary [...] Date Type Department Care Team Description 10/07/2024 Telephone [facility] CH[facility] MED & PEDS [address] [place], [place] [phone] Chalo Lemos MD No Show 10/07/2024 Telephone [facility] MEDICINE [address] [place] [address] Chepe Rossdori [place] Tele appt 10/07/2024 Travel from Last 3 Months Immunizations Name Administration [...] Date Last Done Comments HIV Screening 1991 Alcohol/Substance Use Screening 2003 Family Planning (PISQ) 2006 Hepatitis C Screening 2009 Pneumococcal Vaccine: Pediatrics (0 to 5 Years) and At-Risk Patients (6 to 49) Years) (1 of 2 - PCV) 2010 HPV Vaccines (2 - 3-dose series) 11/01/2011 [...] 12:29 PM EDT) Triglycerides 103 <150 mg/dL [facility] Comment:Desirable Triglyceri de: less than 150 mg/dLBorderline High Triglyceride 150-199 mg/dLHigh Triglyceride: 200-499 mg/dLVery High Triglyceride: greater than or equal to 5OO mg/dL Cholesterol 163 <200 mg/dL [facility] Comment:Desirable Cholestero l: less than 200 mg/dLBorderline High Cholesterol: 200-239 mg/dLHigh Cholesterol: greater than 239 mg/dL LDL Cholesterol Calculated 111(H) <100 mg/dL [facility] Comment:Desirable LDL: less than 100 mg/dLNear Optimal/Above Optimal LDL: 110- 129 mg/dLBorderline High LDL: 130-159 mg/dLHigh LDL: 160-189 mg/dLVery High LDL: greater than or equal to 190 mg/dL HDL Cholesterol 32(L) >40 mg/dL [facility] Comment:Desirable HDL: great er than 40 mg/dL Note: This HDL assay may give artificially low results in patients with liver disease. 06/15/2023 12:2 9 PM EDT 06/15/2023 12:34 PM EDT us Generic External Data Provider LAB BLOOD ORDERAB LES Final Result [facility] [address] [place] [phone] from Last 3 Months or Most Recently Relevant to Health Maintenance Insurance [facility] C3 Care Teams Customer Service Advisor Relationship Specialty Start Date End Date VelasquezChalo Love MD [address] [place] [address] [place] [phone] PCP - General Internal Medicine 05/14/20
--- OUTSIDE RECORDS SUMMARY | 2024-11-13 15:51 | XMS_ITS | Encounter Summary ---
Author Organization [employer] Address [address] [facility] 7t [place] [address] Care Team Providers Care Principal Archaeologist Name Role Phone Chalo Lemos MD Primary Care Prov ider Reason for Visit * Reason Onset Date Comments Nurse Triage 04/03/2024 Encounter Details Date Type Department Care Team ([facility] st Contact Info) Description 04/03/2024 Telephone [facility] MED & PEDS [address] [place], [place] [phone] Chalo Lemos MD [address] [place], [place] [phone] Nurse Triage Social History Tobacco Use Types [...] else could help this pain. ASK apt [facility] today at 340pm. Insurance is verified [...] on filedocumented in this encounter Care Teams Principal Archaeologist Relationship Specialty Start Date End Date Chalo Lemos MD [address] [place] [phone] PCP - General Internal Medicine 05/14/20 documented as of this encounter
--- OUTSIDE RECORDS SUMMARY | 2024-11-13 15:51 | XMS_ITS | Encounter Summary ---
Author Organization [employer] Address [address] [facility] 7t [place] [address] Care Team Providers Care Police Captain Precinct Name Role Phone Chalo Lemos MD Primary Care Prov ider Encounter Details Date Type Department Care Team ([facility] st Contact Info) Description 02/27/2024 Orders Only [facility] CHC MED & PEDS [address] [place], [place] [phone] Lyn Arias MD [address] [place], [place] [phone] Bilateral carpal tunnel syndrome (Primary Dx) Social [...] syndrome documented in this encounter Care Teams Police Captain Precinct Relationship Specialty Start Date End Date Chalo Lemos MD [address] [place] [phone] PCP - General Internal Medicine 05/14/20 documented as of this encounter
--- OUTSIDE RECORDS SUMMARY | 2024-11-13 15:51 | XMS_ITS | Encounter Summary ---
Author Organization [employer] Address [address] [facility] [address] 7t [place] [address] Care Team Providers Care Store Merchandiser Name Role Phone Chalo Lemos MD Primary Care Prov ider Reason for Visit * Reason Onset Date Comments Call Back Request 02/27/2024 Encounter Details Date Type Department Care Team ([facility] st Contact Info) Description 02/27/2024 Telephone [facility] MEDICINE [address] [place], [place] [phone] Chalo Lemos MD [address] [place] [phone] Call Back Request Social History Tobacco Use [...] on filedocumented in this encounter Care Teams Store Merchandiser Relationship Specialty Start Date End Date Chalo Lemos MD [address] [place] [phone] PCP - General Internal Medicine 05/14/20 documented as of this encounter
--- OUTSIDE RECORDS SUMMARY | 2024-11-13 15:51 | XMS_ITS | Encounter Summary ---
Author Organization [employer] Address [address] [facility] 7t [place] [address] Care Team Providers Care Outpatient Physical Therapist Assistant Name Role Phone Chalo Lemos MD Primary Care Prov ider Encounter Details Date Type Department Care Team ([facility] st Contact Info) Description 07/12/2024 Telephone [facility] CH[facility] MED & PEDS [address] [place], [place] [phone] Chalo Lemos MD [address] [place] [address] Social History Tobacco Use Types Packs/Day Years [...] on filedocumented in this encounter Care Teams Outpatient Physical Therapist Assistant Relationship Specialty Start Date End Date Chalo Lemos MD [address] [place] [phone] PCP - General Internal Medicine 05/14/20 documented as of this encounter
--- OUTSIDE RECORDS SUMMARY | 2024-11-13 15:51 | XMS_ITS | Encounter Summary ---
Author Organization [employer] Address [address] [facility] 7t [place] [address] Care Team Providers Care Bench Mechanic Name Role Phone Chalo Lemos MD Primary Care Prov ider Reason for Visit * Reason Onset Date Comments Nurse Triage 07/12/2024 Encounter Details Date Type Department Care Team ([facility] st Contact Info) Description 07/12/2024 Telephone [facility] MEDICINE [address] [place], [place] [phone] Chalo Lemos MD [address] [place] [phone] Nurse Triage Social History Tobacco Use Types [...] AM EDT Tc from pt returning call. Dramatic Agent updated contact information. Contact pt at [phone] * Telephone Encounter - Dutch Claros - 07/12/2024 8:57 AM EDT Symptom: Runny Nose Outcome: Schedule an appointment to be seen within 24 hours Reason: Caller denied all higher acuity questions The caller accepted this outcome. documented in this encounter Plan of Treatment Not on file documented as of this encounter Visit Diagnoses Not on filedocumented in this encounter Care Teams Bench Mechanic Relationship Specialty Start Date End Date Chalo Lemos MD [address] [place] [phone] PCP - General Internal Medicine 05/14/20 documented as of this encounter
--- NOTE | 2024-12-31 08:44 | P.OP_ITS ---
Operative Note Operative Note Date of Service: 12/31/24 Narrative: Preop diagnosis: 1. Right Carpal tunnel syndrome Postop diagnosis: same Procedure: 1. Right Carpal tunnel release Surgeon: Debora Rojas MD Test Automation Architect: Yoan PUGH Anesthesia: local block using 1% lidocaine with epinephrine Findings: Thickened transverse carpal ligament. EBL: Less than 5 mL Specimens: None Complications: None Disposition: Brought to recovery room in stable condition Plan: Follow-up for 10-14 days for wound check and suture removal Indications: The patient is 34 years old, with right carpal tunnel syndrome that has been unresponsive to nonoperative management. The risks and benefits of operative treatment including but not limited to risk of damage to blood vessels, nerves, tendons, infection, persistent pain, persistent symptoms, or possible need for additional surgery were discussed with the patient and the patient wishes to proceed with surgery. Procedure: Once consent was obtained a local block was performed using a combination of 1% lidocaine with epinephrine. The patient was then brought back to the operating suite and placed on the operative table in supine position. The right upper extremity was prepped and draped in a standard surgical fashion. Once assured that we had a good block, a 2.0 cm longitudinal incision was made centered over the carpal tunnel. The incision was made through the skin to the subcutaneous tissues using a #15 blade. Dissection was made down to the level of the transverse carpal ligament with care being taken to protect the palmar cutaneous nerve. Once the transverse carpal ligament was clearly visualized, a longitudinal incision was made in the transverse carpal ligament 1st using a #15 blade, then using tenotomy scissors under direct visualization. Care was taken to look for and protect the motor branch of the median nerve when seen in this area. Once satisfied with our carpal tunnel release the wound was copiously irrigated with normal saline and hemostasis was obtained with a brief period of local pressure. The skin edges were reapproximated with some 5.0 nylon suture material and a sterile dressing was applied. The patient appears to have tolerated the procedure well and with no complications. All digits were well vascularized at the conclusion of the case.
--- NOTE | 2024-12-31 08:44 | MHC.SHP ---
Pre-Procedural Eval Section A - 24 Hr Update-Section A only Date of Service: 12/31/24 The patient is an INPATIENT: No Changes since office visit: No Cold of Flu in the past 2 weeks, No New Medical Problems, No Changes in Medication and No Patient answered all questions The patient has been examined within 24 hours of the surgical procedure. The History & Physical has been completed within 30 days and I have reviewed it.: Yes Section B - Complete if H&P > 30 days Chief Complaint: Carpal tunnel syndrome, right upper limb Allergies: Allergies Allergy/AdvReac Type Severity Reaction Status Date / Time No Known Allergies Allergy Verified 10/16/24 11:23 Plan Diagnosis/Plan: Unchanged I have reviewed the history and physical and performed a pertinent physical examination on my patient. No changes have occurred unless specified. Time Spent With Patient Time: Total time managing care of this patient today ____ minutes.
[2024-12-31 08:53] VITALS: BMI 48.1
[2024-12-31 08:54] VITALS: BP 139/80; PULSE 85; RESP 18; TEMP 36.8; O2SAT 100
[2024-12-31 09:49] VITALS: BP 107/72; PULSE 76; RESP 18; TEMP 36.6; O2SAT 97
== END 2024-12-31 10:21 | disposition home or self-care (01) ==
PROVIDERS: PCP Internal Medicine; Visit Provider Orthopaedic Surgery
PROC: (CPT 64721; principal; 2024-12-31 10:00)
DX: G56.01 Carpal tunnel syndrome, right upper limb (principal); J45.909 Unspecified asthma, uncomplicated; M47.16 Other spondylosis with myelopathy, lumbar region; M46.1 Sacroiliitis, not elsewhere classified; E66.01 Morbid (severe) obesity due to excess calories; Z98.890 Other specified postprocedural states; F17.210 Nicotine dependence, cigarettes, uncomplicated
CPT/HCPCS: 64721; J0171; J2003

== ENCOUNTER → 2024-12-31 08:18 | Outpatient (BNV) | payer MEDICAID, SELFPAY | PROVIDERS: PCP Internal Medicine; Visit Provider Orthopaedic Surgery | DX: G56.01 Carpal tunnel syndrome, right upper limb (principal) | CPT/HCPCS: 64721 ==

== ENCOUNTER 2025-01-15 08:52 | Outpatient (AMB) | payer MEDICAID, SELFPAY ==
--- NOTE | 2025-01-15 09:02 | MHC.OFFVIS ---
Vital Signs 01/15/25 09:10 Height 5 ft 4 in Weight 279 lb BMI 47.9 Handedness Left Intake Visit Reasons: PO RT CTR 12/31/24 AR Intake Note: Melanie is a 34 year old left hand dominant female who presents today for a post operative RT CTR, DOS 12/31/24 AR. States her symptoms have resolved and she is doing well. Sutures removed and steri-strips applied. Patient is feeling episodes of pain on the tips of her index, middle and ring finger. She mentions that her numbness improved slightly and she is still having tingling. Allergies No Known Allergies Allergy (Verified 01/15/25 09:10) HPI HPI PO RT CTR 12/31/24 AR: Details: Melanie is a 34 year old right hand dominant woman who presents S/P right carpal tunnel release, DOS: 12/31/24. She says she is doing well overall and her sensation has improved, but is still not normal. She reports some intermittent tingling & pain to the tips of her index, middle, and ring fingers. She has a Hx of a left carpal tunnel release, DOS: 09/23/24. Her sensation is now normal and she is happy with the results. 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 She says there is no light duty available to her. [facility] Medical History (Updated 01/15/25 @ 09:12 by Joon Castro) History of headache Asthma Morbid obesity Spondylosis, lumbar, with myelopathy Sacroiliitis Surgical History Hx of tubal ligation Hx of breast reduction, elective Family History (Updated 06/01/23 @ 11:13 by Rama Claros [facility]) Mother Prediabetes Asthma Hypertension Father No problems noted. Son No problems noted. Son No problems noted. Daughter No problems noted. Social History Are you a primary day care attendant to a significant other at home: No Do you presently have visiting nurse or other home services: No Alcohol intake: current Alcohol intake frequency: holidays/special occasions only Patient Tobacco Use Status: Current everyday Tobacco user Tobacco use type: Cigarette Cigarettes Per Day: 5 Current occupation: left hand dominant Review of Systems Const All systems reviewed & are unremarkable except as noted in HPI and below Physical Exam Vital Signs: BMI result Body Mass Index 47.9 Const General: no acute distress and alert Orientation/consciousness: patient oriented x3 Neuro General: patient oriented x3 Extrem Other: The patient was alert oriented and in no acute distress The incision is healing well with no erythema drainage or evidence of infection. Sutures removed and Steri-Strips applied She can make a fist and extend all her digits Sensation is normal today, but she has occasional intermittent pain to the tips of her index, middle, and ring fingers Cap refill is brisk Psych Appearance: grossly normal Affect: normal affect Attitude: cooperative Assessment & Plan Assessment & Plan (1) Carpal tunnel syndrome of right wrist: Code(s): G56.01 - Carpal tunnel syndrome, right upper limb Category: Medical Plan Assessment & Plan: 1. Right carpal tunnel syndrome, S/P release DOS: 12/31/24 Pre-operative symptoms intermittent, but daily, worse at night Now with normal sensation but occasional intermittent pain to the tips of her index, middle, and ring fingers The patient appears to be doing well post-operatively I educated her about the post-operative course I explained that it may take up to 9 months post-operatively for any sensation to return. I explained the signs and symptoms of infection I discussed activity modifications, she is to lift nothing heavier than a cellphone for the next 2 weeks She will perform gentle ROM exercises at home She should avoid any underwater activities for the next 5 days She should gently massage about the incision site to reduce the risk of hypersensitivity She works at a newspaper and says there is no light duty available. She was given a note for work to remain out of work for 2 weeks. She will return to full duty on 01/27/25. She can follow up prn 2. Left carpal tunnel syndrome, S/P release DOS: 09/23/24 Pre-operative symptoms intermittent, but daily, worse at night Now with normal sensation Scribed for Debora Rojas MD by Joon Castro remote medical coder, on 01/15/25 at 9:15 AM, EST. Coding Level of Care Code Global (87136) Diagnoses Carpal tunnel syndrome of right wrist G56.01
[2025-01-15 09:10] VITALS: BMI 47.9
--- OUTSIDE RECORDS SUMMARY | 2025-01-15 09:19 | XMS_ITS | Clinical Summary ---
Author Organization [email or web address] Address [address] [facility] [address] [place] [address] Care Team Providers Care Manager Clinic Name Role Phone Chalo Lemos MD Primary [...] PFT's, to evaluate sverity, continue albuterol prn. Immunizations Name Administration Dates Next Due DTP [...] 12:29 PM EDT) Triglycerides 103 <150 mg/dL [facility] Comment:Desirable Triglyceri de: less than 150 mg/dLBorderline High Triglyceride 150-199 mg/dLHigh Triglyceride: 200-499 mg/dLVery High Triglyceride: greater than or equal to 5OO mg/dL Cholesterol 163 <200 mg/dL [facility] Comment:Desirable Cholestero l: less than 200 mg/dLBorderline High Cholesterol: 200-239 mg/dLHigh Cholesterol: greater than 239 mg/dL LDL Cholesterol Calculated 111(H) <100 mg/dL [facility] Comment:Desirable LDL: less than 100 mg/dLNear Optimal/Above Optimal LDL: 110- 129 mg/dLBorderline High LDL: 130-159 mg/dLHigh LDL: 160-189 mg/dLVery High LDL: greater than or equal to 190 mg/dL HDL Cholesterol 32(L) >40 mg/dL [facility] Comment:Desirable HDL: great er than 40 mg/dL Note: This HDL assay may give artificially low results in patients with liver disease. 06/15/2023 12:2 9 PM EDT 06/15/2023 12:34 PM EDT us Generic External Data Provider LAB BLOOD ORDERAB LES Final Result [facility] [address] [facility] [place] [address] [phone] from Last 3 Months or Most Recently Relevant to Health Maintenance Insurance Care Teams Manager Clinic Relationship Specialty Start Date End Date Chalo Lemos MD [address] [facility] [place] [address] PCP - General Internal Medicine 05/14/20
--- OUTSIDE RECORDS SUMMARY | 2025-01-15 09:19 | XMS_ITS | Encounter Summary ---
Author Organization [employer] Address [address] [facility] [address] [place] [address] Care Team Providers Care Gluer And Wedger Name Role Phone Chalo Lemos MD Primary Care Prov ider Encounter Details Date Type Department Care Team ([facility] st Contact Info) Description 07/12/2024 Telephone [facility] MED & PEDS [address] [place], [place] [phone] Chalo Lemos MD [address] [place] [address] Social History Tobacco Use Types Packs/Day Years [...] on filedocumented in this encounter Care Teams Gluer And Wedger Relationship Specialty Start Date End Date Chalo Lemos MD [address] [place] [id number] PCP - General Internal Medicine 05/14/20 documented as of this encounter
--- OUTSIDE RECORDS SUMMARY | 2025-01-15 09:19 | XMS_ITS | Encounter Summary ---
Author Organization [employer] Address [address] [facility] [address] [place] [address] Care Team Providers Care Customer Services Coordinator Name Role Phone Chalo Lemos MD Primary Care Prov ider Encounter Details Date Type Department Care Team ([facility] st Contact Info) Description 02/27/2024 Orders Only [facility] CH[facility] MED & PEDS [address] [place], [place] [phone] Lyn Arias MD [address] [place], [place] [phone] Bilateral carpal tunnel syndrome (Primary Dx) Social [...] syndrome documented in this encounter Care Teams Customer Services Coordinator Relationship Specialty Start Date End Date Chalo Lemos MD [address] [place] [id number] PCP - General Internal Medicine 05/14/20 documented as of this encounter
--- OUTSIDE RECORDS SUMMARY | 2025-01-15 09:19 | XMS_ITS | Encounter Summary ---
Author Organization [employer] Address [address] [facility] [address] [place] [address] Care Team Providers Care Dental Laboratory Technician Name Role Phone Chalo Lemos MD Primary Care Prov ider Reason for Visit * Reason Onset Date Comments Nurse Triage 07/12/2024 Encounter Details Date Type Department Care Team ([facility] st Contact Info) Description 07/12/2024 Telephone [facility] [address], [place] [phone] Chalo Lemos MD [address] [place] [address] Nurse Triage Social History Tobacco Use Types [...] AM EDT Tc from pt returning call. Jackhammer Operator updated contact information. Contact pt at [phone] * Telephone Encounter - Dutch Claros - 07/12/2024 8:57 AM EDT Symptom: Runny Nose Outcome: Schedule an appointment to be seen within 24 hours Reason: Caller denied all higher acuity questions The caller accepted this outcome. documented in this encounter Plan of Treatment Not on file documented as of this encounter Visit Diagnoses Not on filedocumented in this encounter Care Teams Dental Laboratory Technician Relationship Specialty Start Date End Date Chalo Lemos MD [address] [place] [id number] PCP - General Internal Medicine 05/14/20 documented as of this encounter
--- OUTSIDE RECORDS SUMMARY | 2025-01-15 09:19 | XMS_ITS | Encounter Summary ---
Author Organization [employer] Address [address] [facility] [address] [place] [address] Care Team Providers Care Sign Writer Hand Name Role Phone Chalo Lemos MD Primary Care Prov ider Encounter Details Date Type Department Care Team ([facility] st Contact Info) Description 02/21/2023 Orders Only [facility] MED & PEDS [address] [place] [address] Chalo Lemos MD [address] [place] [address] Social History Tobacco Use Types Packs/Day Years [...] EST) H. pylori Breath Test Positive Negative [facility] Comment:Antimicrobials, prot on pump inhibitors and bismuthpreparations are known to suppress H. pylori. Ingestingthese medications within two weeks prior to performing thebreath test may produce negative test results. A positiveresult is still clinically valid. 07/26/2023 10:1 4 AM EST 07/26/2023 7:19 PM EST Generic External Data Provider LAB BLOOD ORDERAB LES Final Result Performing Organization Address City/[facility]/ZIP Co de Phone Number [facility] [address] [place] [phone] * Helicobacter pylori, Urea Breath Test (06/15/2023 1:50 PM EDT) H. pylori Breath Test TNP Negative [facility] Comment:Duplicate order/Orde red in error 06/15/2023 1:50 PM EDT 06/16/2023 1:51 PM EDT [facility] External Provider LAB BLO OD ORDERABLES Final Result Performing Organization Address [facility] Co de Phone Number [facility] [address] [place] [phone] * Vitamin B1 (06/15/2023 12:29 PM EDT) Vitamin B1 8 8 - 30 nmol/L [facility] Comment:Vitamin supplementat ion within 24 hours prior toblood draw may affect the accuracy of the results.This test was developed and its analytical performancecharacteristics have been determined by [employer] [place], [place]. It hasnot been cleared or approved by the U.S. Food and DrugAdministration. This assay has been validated pursuantto the CLIA regulations and is used for clinicalpurposes.THIS TEST WAS PERFORMED AT:[id number] [place] [id number] SHEA MD,PHD 06/15/2023 12:2 9 PM EDT 06/15/2023 12:34 PM EDT Generic External Data Provider LAB BLOOD ORDERAB LES Final Result Performing Organization Address [facility] Co de Phone Number [facility] [address] [place] [phone] * (ABNORMAL) Vitamin A (06/15/2023 12:29 PM EDT) Vitamin A (Retinol) 36(A) 38 - 98 mcg/dL [facility] Comment:Vitamin supplementat ion within 24 hours prior toblood draw may affect the accuracy of the results.This test was developed and its analytical performancecharacteristics have been determined by [employer] [place], [place]. It hasnot been cleared or approved by the U.S. Food and DrugAdministration. This assay has been validated pursuantto the CLIA regulations and is used for clinicalpurposes.THIS TEST WAS PERFORMED AT:[employer] [id number] [place] [id number] SHEA MD,PHD 06/15/2023 12:2 9 PM EDT 06/15/2023 12:34 PM EDT [facility] External Provider LAB BLO OD ORDERABLES Final Result Performing Organization Address [facility] Co de Phone Number [facility] [address] [place] [phone] * Zinc (06/15/2023 12:29 PM EDT) Zinc 60 60 - 130 mcg/dL [facility] Comment:This test was develo ped and its analytical performancecharacteristics have been determined by [employer] [place], [place]. It hasnot been cleared or approved by the U.S. Food and DrugAdministration. This assay has been validated pursuantto the CLIA regulations and is used for clinicalpurposes.THIS TEST WAS PERFORMED AT:[employer] [id number] [place] [id number] SHEA MD,PHD 06/15/2023 12:2 9 PM EDT 06/15/2023 12:34 PM EDT [facility] External Provider LAB BLO OD ORDERABLES Final Result Performing Organization Address City/[facility]/ZIP Co de Phone Number [facility] [address] [place] [phone] * PTH, Intact Without Calcium (06/15/2023 12:29 PM EDT) PTHI 27 16 - 77 pg/mL [facility] Comment:Interpretive Guide I ntact PTH Calcium -------Normal Parathyroid Normal NormalHypoparathyroidism Low or Low Normal LowHyperparathyroidism Primary Normal or High High Secondary High Normal or Low Tertiary High HighNon-Parathyroid Hypercalcemia Low or Low Normal High Calcium (PTHI) 9.4 8.6 - 10.2 mg/dL [facility] Comment:THIS TEST WAS PERFOR MED AT:[employer] [place] [id number] LUCAS MD 06/15/2023 12:2 9 PM EDT 06/15/2023 12:34 PM EDT [facility] External Provider LAB BLO OD ORDERABLES Final Result Performing Organization Address City/[facility]/ZIP Co de Phone Number [facility] [address] [place] [phone] * Vitamin B12/Folate, Serum Panel (06/15/2023 12:29 PM EDT) Vitamin B12 660 200 - 900 pg/mL [facility] Comment:NORMAL 200-900 PG/ML INDETERMINATE 160-199 PG/ML DEFICIENT < 160 PG/ML Folate 9.4 > or = 4.0 ng/mL [facility] Comment:Reference Values:> o r = 4.0 ng/mL< 4.0 ng/mL suggests folate deficiency Methotrexate, aminopterin and folinic acid(leucovorin) are chemotherapeutic agents whose molecularstructures are similar to folate; therefore, the Architectfolate assay cannot be used for patients using these drugs. 06/15/2023 12:2 9 PM EDT 06/15/2023 12:34 PM EDT [facility] External Provider LAB BLO OD ORDERABLES Final Result Performing Organization Address [facility] Co de Phone Number [facility] [address] [place] [phone] * Insulin (06/15/2023 12:29 PM EDT) Insulin 10 2 - 29 uU/mL [facility] Comment:This test was perfor med [...] ORDERAB LES Final Result Performing Organization Address [facility]/ZIP Co de Phone Number [facility] [address] [place] [phone] * TSH W/Reflex to FT4 (06/15/2023 12:29 PM EDT) TSH reflex Free T4 1.51 0.32 - 4.0 uIU/mL [facility] 06/15/2023 12:2 9 PM EDT 06/15/2023 12:34 PM EDT us Generic External Data Provider LAB BLOOD ORDERAB LES Final Result Performing Organization Address City/[facility]/ZIP Co de Phone Number [facility] [address] [place] [phone] * Vitamin D, 25-Hydroxy, Total, Immunoassay (06/15/2023 12:29 PM EDT) Vitamin D 25-OH Total 31.2 >30 ng/mL [facility] Comment:Health Based Referen ce Values*< 20 ng/mL Tgodkgltt66-46 ng/mL Insufficient> 30 ng/mL Sufficient*Jackelin GORMAN. N [...] ORDERAB LES Final Result Performing Organization Address [facility]/ZIP Co de Phone Number [facility] [address] [place] [phone] * Ferritin (06/15/2023 12:29 PM EDT) Ferritin 24 10 - 122 ng/mL [facility] 06/15/2023 12:2 9 PM EDT 06/15/2023 12:34 PM EDT us Generic External Data Provider LAB BLOOD ORDERAB LES Final Result Performing Organization Address City/[facility]/ZIP Co de Phone Number [facility] [address] [place] [phone] * (ABNORMAL) Lipid Panel, Standard (06/15/2023 12:29 PM EDT) Triglycerides 103 <150 mg/dL [facility] Comment:Desirable Triglyceri de: less than 150 mg/dLBorderline High Triglyceride 150-199 mg/dLHigh Triglyceride: 200-499 mg/dLVery High Triglyceride: greater than or equal to 5OO mg/dL Cholesterol 163 <200 mg/dL [facility] Comment:Desirable Cholestero l: less than 200 mg/dLBorderline High Cholesterol: 200-239 mg/dLHigh Cholesterol: greater than 239 mg/dL LDL Cholesterol Calculated 111(H) <100 mg/dL [facility] Comment:Desirable LDL: less than 100 mg/dLNear Optimal/Above Optimal LDL: 110- 129 mg/dLBorderline High LDL: 130-159 mg/dLHigh LDL: 160-189 mg/dLVery High LDL: greater than or equal to 190 mg/dL HDL Cholesterol 32(L) >40 mg/dL [facility] Comment:Desirable HDL: great er than 40 mg/dL Note: This HDL assay may give artificially low results in patients with liver disease. 06/15/2023 12:2 9 PM EDT 06/15/2023 12:34 PM EDT us Generic External Data Provider LAB BLOOD ORDERAB LES Final Result [facility] [address] [place] [phone] * (ABNORMAL) C-reactive Protein (06/15/2023 12:29 PM EDT) C Reactive Protein 1.56(H) < or = 0.50 mg/dL [facility] 06/15/2023 12:2 9 PM EDT 06/15/2023 12:34 PM EDT us Generic External Data Provider LAB BLOOD ORDERAB LES Final Result Performing Organization Address [facility]/ZIP Co de Phone Number [facility] [address] [place] [phone] * (ABNORMAL) Iron And Total Iron Binding Capacity (06/15/2023 12:29 PM EDT) Iron 31 30 - 160 mcg/dL [facility] Total Iron Binding Capacity 402 228 - 428 mcg/dL [facility] Percent Iron Saturation 8(L) 15 - 50 % [facility] Unsaturated Iron Binding 371 ug/dL [facility] 06/15/2023 12:2 9 PM EDT 06/15/2023 12:34 PM EDT us Generic External Data Provider LAB BLOOD ORDERAB LES Final Result Performing Organization Address [facility] Co de Phone Number [facility] [address] [place] [phone] * (ABNORMAL) Comprehensive Metabolic Panel (06/15/2023 12:29 PM EDT) Sodium 138 135 - 145 mmol/L [facility] Potassium 3.9 3.3 - 5.1 mmol/L [facility] Chloride 104 96 - 108 mmol/L [facility] Carbon Dioxide 23 22 - 29 mmol/L [facility] Anion Gap 15 12 - 20 [facility] Urea Nitrogen (BUN) 8(L) 9 - 16 mg/dL [facility] Creatinine, Serum 0.59 0.5 - 1.4 mg/dL [facility] Estimated Glomerular Filt Rate >60 [facility] Comment:NOTE: For -Am erican individuals, multiply the result by 1.210.Chronic Kidney Disease: Estimated GFR < 60 mL/min/1.23q2Hsbrom Kidney Disease: Estimated GFR < 15 mL/min/1.73m2 Glucose 87 60 - 115 mg/dL [facility] Calcium 9.7 8.4 - 10.2 mg/dL [facility] Bilirubin, Total 0.2 0.0 - 1.0 mg/dL [facility] Aspartate Amino Transferase 23 5 - 31 U/L [facility] Alanine Aminotransferase 32(H) 0 - 31 U/L [facility] Total Protein 7.0 6.5 - 8.0 g/dL [facility] Albumin Level 3.9 3.5 - 5.0 g/dL [facility] Alkaline Phosphatase 77 39 - 117 U/L [facility] 06/15/2023 12:2 9 PM EDT 06/15/2023 12:34 PM EDT [facility] External Provider LAB BLO OD ORDERABLES Final Result Performing Organization Address [facility]/ZIP Co de Phone Number [facility] [address] [place] [phone] * Hemoglobin A1c (06/15/2023 12:29 PM EDT) Hemoglobin A1c 5.2 <6.0 % [facility] Comment:Hemoglobin A1C Refer ence Range Adults: 4.8 - 6.0 % Non diabetic: < 6.0 % Goal: < 7.0 %Additional Action Suggested: > 8.0 %Note: Hemoglobin A1c results are invalid for patients with abnormal amounts of HbF. Blood transfusions may impact the HbA1c concentration in the patient sample. Estimated Average Glucose 103 mg/dL [facility] Comment:eAG = Estimated ave rage glucose which is %A1C expressed asaverage glucose, using the formula of the [id number] Glucose study (ADAG), Diabetes Care, Vol.31,#8,Apr. 2007 06/15/2023 12:2 9 PM EDT 06/15/2023 12:34 PM EDT [facility] External Provider LAB BLO OD ORDERABLES Final Result Performing Organization Address [facility] Co de Phone Number [facility] [address] [place] [phone] * (ABNORMAL) CBC auto differential (06/15/2023 12:29 PM EDT) White Blood Count 12.2(H) 4.8 - 10.8 X10*3/uL [facility] Red Blood Count 4.78 4.20 - 5.50 X10*6/uL [facility] Hemoglobin 12.4 12.0 - 16.0 g/dl [facility] Hematocrit 38.7 37.0 - 47.0 % [facility] Mean Corpuscular Volume 81.0 80.0 - 98.0 fL [facility] Mean Corpuscular Hemoglobin 25.9(L) 27.0 - 33.0 pg [facility] Mean Corpuscular HGB Conc 32.0 31.0 - 35.0 g/dl [facility] Red Cell Distribution Width 15.0 11.0 - 16.0 % [facility] Platelet Count 382 160 - 400 X10*3/uL [facility] Mean Platelet Volume 10.4 9.4 - 12.3 fL [facility] Neutrophils Percent Auto 66.0 45 - 73 % [facility] Imm Gran Pct Auto 0.3 0.0 - 0.4 % [facility] Lymphocytes Percent Auto 26.4 20 - 40 % [facility] Monocytes Percent Auto 5.5 2 - 11 % [facility] Eosinophils Percent Auto 1.6 0 - 4 % [facility] Basophils Percent Auto 0.2 0 - 2 % [facility] NRBC Pct Auto 0.0 0.0 - 0.2 /100WBC [facility] Neutrophils Absolute Auto 8.1 2.0 - 8.3 x10*3/uL [facility] Imm Gran Abs Auto 0.04(H) 0.00 - 0.03 X10*3/uL [facility] Lymphocytes Absolute Auto 3.2 1.2 - 4.9 X10*3/uL [facility] Monocytes Absolute Auto 0.7 0.1 - 1.2 X10*3/uL [facility] Eosinophils Absolute Auto 0.2 0.0 - 0.4 X10*3/uL [facility] Basophils Absolute Auto 0.0 0.0 - 0.2 X10*3/uL [facility] NRBC Abs Auto 0.000 0.0 - 0.012 X10*3/uL [facility] 06/15/2023 12:2 9 PM EDT 06/15/2023 12:34 PM EDT us [facility] External Provider LAB BLO OD ORDERABLES Final Result Performing Organization Address City/State/[facility] Co de Phone Number [facility] [address] [place] [phone] documented in this encounter Visit Diagnoses Not on filedocumented in this encounter Care Teams Sign Writer Hand Relationship Specialty Start Date End Date Chalo Lemos MD [address] [place] [phone] PCP - General Internal Medicine 05/14/20 documented as of this encounter
--- OUTSIDE RECORDS SUMMARY | 2025-01-15 09:19 | XMS_ITS | Encounter Summary ---
Author Organization [employer] Address [address] [facility] [address] [place] [address] Care Team Providers Care Personnel Monitor Name Role Phone Chalo Lemos MD Primary Care Prov ider Reason for Visit * Reason Onset Date Comments Nurse Triage 04/03/2024 Encounter Details Date Type Department Care Team ([facility] st Contact Info) Description 04/03/2024 Telephone [facility] MED & PEDS [address] [place], [place] [phone] Chalo Lemos MD [address] [place], [place] [phone] Nurse Triage Social History Tobacco Use Types [...] else could help this pain. [place] [facility] [place] at 340[place]. Insurance is verified [...] on filedocumented in this encounter Care Teams Personnel Monitor Relationship Specialty Start Date End Date Chalo Lemos MD [address] [place] [phone] PCP - General Internal Medicine 05/14/20 documented as of this encounter
--- OUTSIDE RECORDS SUMMARY | 2025-01-15 09:19 | XMS_ITS | Encounter Summary ---
Author Organization [employer] Address [address] [facility] [address] [place] [address] Care Team Providers Care Multimedia Services Manager Name Role Phone Chalo Lemos MD Primary Care Prov ider Reason for Visit * Reason Onset Date Comments Results 02/26/2024 Encounter Details Date Type Department Care Team ([facility] st Contact Info) Description 02/26/2024 Telephone [facility] MEDICINE [address] [place] [address] Chalo Lemos MD [address] [facility] [place] [phone] Results Social History Tobacco Use Types Packs/Day [...] on filedocumented in this encounter Care Teams Multimedia Services Manager Relationship Specialty Start Date End Date Chalo Lemos MD [address] [place] [phone] PCP - General Internal Medicine 05/14/20 documented as of this encounter
--- OUTSIDE RECORDS SUMMARY | 2025-01-15 09:19 | XMS_ITS | Encounter Summary ---
Author Organization [employer] Address [address] [facility] [address] [place] [address] Care Team Providers Care Data Warehouse Developer Name Role Phone Chalo Lemos MD Primary Care Prov ider Reason for Visit * Reason Onset Date Comments Call Back Request 02/27/2024 Encounter Details Date Type Department Care Team ([facility] st Contact Info) Description 02/27/2024 Telephone [facility] MEDICINE [address] [place], [place] [phone] Chalo Lemos MD [address] [facility] [address] [place] [phone] Call Back Request Social History Tobacco Use [...] on filedocumented in this encounter Care Teams Data Warehouse Developer Relationship Specialty Start Date End Date Chalo Lemos MD [address] [place] [phone] PCP - General Internal Medicine 05/14/20 documented as of this encounter
== END 2025-01-15 09:22 | disposition home or self-care (01) ==
LOC: HO.HOS 08:53
PROVIDERS: PCP Internal Medicine; Visit Provider Orthopaedic Surgery
DX: G56.01 Carpal tunnel syndrome, right upper limb (principal)
CPT/HCPCS: 99024

== ENCOUNTER → 2025-01-15 08:52 | Outpatient (BNVA) | payer MEDICAID, SELFPAY | PROVIDERS: PCP Internal Medicine; Visit Provider Orthopaedic Surgery | DX: M79.644 Pain in right finger(s) (principal); Z48.811 Encounter for surgical aftercare following surgery on the nervous system; Z98.890 Other specified postprocedural states | CPT/HCPCS: 99212 ==

== ENCOUNTER 2025-05-28 16:20 | Outpatient (REF) | payer MEDICAID, SELFPAY ==
--- OUTSIDE RECORDS SUMMARY | 2025-05-28 15:40 | XMS_ITS | Encounter Summary ---
Author Organization [employer] Address [address] [facility] [address] [place] [address] Care Team Providers Care Planer Mill Grader Name Role Phone Chalo Lemos MD Primary Care Prov ider Encounter Details Date Type Department Care Team ([facility] st Contact Info) Description 05/28/2025 3:40 PM EDT Office Visit [facility] MED & PEDS [address] [place], [place] [phone] Lyn Arias MD [address] [place] [address] Cellulitis of abdominal wall (Primary Dx) Social History Tobacco Use Types [...] AM EDT documented as of this encounter Last Filed Vital Signs Vital Sign Reading Time Taken Comments Blood Pressure 119/72 05/28/2025 3:58 PM EDT Pulse 72 05/28/2025 3:58 PM EDT Temperature 36.8 C (98.2 F) 05/28/2025 3:58 PM EDT Respiratory Rate 20 05/28/2025 3:58 PM EDT Oxygen Saturation 98% 05/28/2025 3:58 PM EDT Inhaled Oxygen Concentration - - Weight 129 kg (284 lb) 05/28/2025 3:58 PM EDT Height 165 cm (5' 4.96 ) 05/28/2025 3:58 PM EDT Body Mass Index 47.32 05/28/2025 3:58 PM EDT documented in this encounter Progress Notes * Lyn Arias MD - 05/28/2025 3:40 PM EDT SUBJECTIVE Melanie Grant is a 35 y.o. female who presents for No chief complaint on file.. HPI Here for sick visit. Patient noted some purulent secretion of the umbilical area 3 days ago. Cleansed the area with hydrogen peroxide with initial improvement. Noticed the similar secretion yesterdayassociated with itchiness. No reported fever or other constitutional symptoms Problem List[1] Allergies[2] Medications Ordered Prior to Encounter[3] Review of Systems Constitutional: Negative for appetite change, chills and diaphoresis. Eyes: Negative for photophobia, pain and redness. Respiratory: Negative for cough, choking and chest tightness. Cardiovascular: Negative for leg swelling. Gastrointestinal: Negative for abdominal pain. Skin: Positive for color change. OBJECTIVE Vitals: 05/28/25 1558 BP: 119/72 BP Location: Left arm Patient Position: Sitting BP Cuff Size: Adult long Pulse: 72 Resp: 20 Temp: 98.2 ??F (36.8 ??C) TempSrc: Oral SpO2: 98% Weight: 284 lb (129 kg) Height: 5' 4.96 (1.65 m) Physical Exam Constitutional: General: She is not in acute distress. Appearance: Normal appearance. She is obese. She is not ill-appearing, toxic- appearing or diaphoretic. Pulmonary: Effort: Pulmonary effort is normal. Skin: Comments: Very mild erythema of the periumbilical area. No oozing. A cotton tip applicator was introduced in the umbilicus in an attempt to get some secretion. This will be sent to the lab. Neurological: Mental Status: She is alert. Assessment/Plan Assessment/Plan Diagnoses and all orders for this visit: Cellulitis of abdominal wall Comments: Possible cellulitis Continue to cleanse the area with hydrogen peroxide Trial of Keflex Patient will be called with the results of the Gram stain Advised to avoid any nickel in general ( to use plastic button ). ??? Contact dermatitis to nickel. Orders: - Wound Culture - cephalexin (Keflex) 500 MG capsule; Take 1 capsule (500 mg) by mouth 3 times daily for 7 days. [1] Patient Active Problem List Diagnosis Mild intermittent asthma without complication Screening for cervical cancer Class 3 severe obesity due to excess calories without serious comorbidity with body mass index (BMI) of 45.0 to 49.9 in adult Low back pain at multiple sites Bilateral carpal tunnel syndrome [2] No Known Allergies [3] Current Outpatient Medications on File Prior to Visit Medication Sig Dispense Refill albuterol 108 (90 Base) MCG/ACT inhaler Inhale 2 puffs every 4 (four) hours if needed for wheezing.18 g 0 gabapentin (Neurontin) 300 MG capsule Take 1 capsule (300 mg) by mouth 3 times daily. 270 capsule 0 No current facility-administered medications on file prior to visit. documented in this encounter Plan of Treatment Scheduled Orders Name Type Priority Associated Diagnoses Orde r Schedule Wound Culture Microbiology Routine Cellulitis of abdominal wall Ordered: 05/28/2025 documented as of this encounter Visit Diagnoses Diagnosis Cellulitis of abdominal wall- Primary Cellulitis and abscess of trunk documented in this encounter Care Teams Planer Mill Grader Relationship Specialty Start Date End Date Chalo Lemos MD [address] [place] [phone] PCP - General Internal Medicine 05/14/20 documented as of this encounter
--- OUTSIDE RECORDS SUMMARY | 2025-05-28 19:18 | XMS_ITS | Encounter Summary ---
Author Organization [employer] Address [address] [facility] 7t [place] [address] Care Team Providers Care Risk And Insurance Consultant Name Role Phone Chalo Lemso MD Primary Care Prov ider Reason for Visit * Reason Onset Date Comments Nurse Triage 05/26/2025 Encounter Details Date Type Department Care Team ([facility] st Contact Info) Description 05/26/2025 Telephone [facility] [address] [place], [place] [phone] Chalo Lemos MD [address] [place] [phone] Nurse Triage Social History Tobacco Use Types [...] encounter Miscellaneous Notes * Telephone Encounter - Latosha Garcia RN - 05/27/2025 3:43 PM EDT Pt offered SDC tomorrow . Agrees to appt below. No changes sx since triage below. Future Appointments Date Time Provider Department Center 05/28/2025 3:40 PM [facility] * Telephone Encounter - Sukhdev Cr - 05/27/2025 3:35 PM EDT Tc from pt calling in regards to message prior to verify if there is any availability. * Telephone Encounter - Angela Brasher RN - 05/26/2025 12:48 PM EDT Triage call Pt reports finding small amount of sero-sanguinous drainage in umbilical area. Pt reports finding blood this morning. Pt denies abdominal pain, hernia or open area. Pt reports wiping the area dry and noticing a bad odor. Neg for redness, fever but, painful to touch. Advised Pt to come to [facility] for provider to see Pt. No available apts in [facility] Today or tomorrow. Pt agrees with disposition. Insurance is verified as active. Protocol Used: No Protocol Available (Adult) Protocol-Based Disposition: See in Office or Video Visit Today or Tomorrow Video visit not offered Positive Triage Question: * Nursing judgment * All higher-acuity triage questions were negative Care Advice Discussed: * Reasons To Call Back - New symptoms develop - You become worse * Telephone Encounter - Parker Hernándezarez - 05/26/2025 12:35 PM EDT Tc from pt reports discharging and bleeding through belly button . Duration 1x day documented in this encounter Plan of Treatment Not on file documented as of this encounter Visit Diagnoses Not on filedocumented in this encounter Care Teams Risk And Insurance Consultant Relationship Specialty Start Date End Date Chalo Lemos MD [address] [place] [phone] PCP - General Internal Medicine 05/14/20 documented as of this encounter
--- OUTSIDE RECORDS SUMMARY | 2025-05-28 19:18 | XMS_ITS | Encounter Summary ---
Author Organization [employer] Address [address] [facility] 7t [place] [address] Care Team Providers Care Infertility Medical Assistant Name Role Phone Chalo Lemos MD Primary Care Prov ider Reason for Visit * Reason Onset Date Comments Call Back Request 02/27/2024 Encounter Details Date Type Department Care Team ([facility] st Contact Info) Description 02/27/2024 Telephone [facility] [address] [place], [place] [phone] Chalo Lemos MD [address] [facility] [address] [place] [phone] Call Back Request Social History Tobacco Use [...] on filedocumented in this encounter Care Teams Infertility Medical Assistant Relationship Specialty Start Date End Date Chalo Lemos MD [address] [place] [phone] PCP - General Internal Medicine 05/14/20 documented as of this encounter
--- OUTSIDE RECORDS SUMMARY | 2025-05-28 19:18 | XMS_ITS | Encounter Summary ---
Author Organization [employer] Address [address] [facility] 7t [place] [address] Care Team Providers Care Tearer Press Clipping Name Role Phone Chalo Lemos MD Primary Care Prov ider Encounter Details Date Type Department Care Team (Latest Contact Info) Description 05/28/2025 Travel Social History Tobacco Use Types Packs/Day [...] on filedocumented in this encounter Care Teams Tearer Press Clipping Relationship Specialty Start Date End Date VelasquezChalo Guzmán MD [address] [place] [phone] PCP - General Internal Medicine 05/14/20 documented as of this encounter
--- OUTSIDE RECORDS SUMMARY | 2025-05-28 19:18 | XMS_ITS | Encounter Summary ---
Author Organization [employer] Address [address] [facility] 7t [place] [address] Care Team Providers Care Mechanical Integrity Engineer Name Role Phone Chalo Lemos MD Primary Care Prov ider Encounter Details Date Type Department Care Team ([facility] st Contact Info) Description 02/27/2024 Orders Only [facility] PEDS [address] [place], [place] [phone] Lyn Arias MD [address] [place], [place] [phone] Bilateral carpal tunnel syndrome (Primary Dx) Social [...] syndrome documented in this encounter Care Teams Mechanical Integrity Engineer Relationship Specialty Start Date End Date Chalo Lemos MD [address] [place] [phone] PCP - General Internal Medicine 05/14/20 documented as of this encounter
--- OUTSIDE RECORDS SUMMARY | 2025-05-28 19:18 | XMS_ITS | Clinical Summary ---
Author Organization [employer] Address [address] [facility] 7t [place] [address] Care Team Providers Care It Security Engineer Name Role Phone Chalo Lemos MD Primary Care Prov ider Allergies No known active allergies Medications albuterol 108 (90 Base) MCG/ACT inhalerIndication s:Mild intermittent asthma without complication Inhale 2 puffs every 4 (four) hours if needed for wheezing. 18 g 3 Active gabapentin (Neurontin) 300 MG capsule Take 1 capsule (300 mg) by mouth 3 times daily. 270 capsule 4 Active cephalexin (Keflex) 500 MG capsuleIndication s:Cellulitis of abdominal wall Take 1 capsule (500 mg) by mouth 3 times daily for 7 days. 21 capsule 5 06/04/20 25 Active Active Problems Problem Noted Date Diagnosed [...] Encounters Date Type Department Care Team Description 05/28/2025 3:40 PM EDT Office Visit [facility] [address] [place] [address] Lyn Arias MD Cellulitis of abdominal wall (Primary Dx) 05/28/2025 Travel 05/26/2025 Telephone [facility] [address] [place], [place] [phone] Chalo Lemos MD Nurse Triage from Last 3 Months Immunizations Immunization Administration Dates Next Due DTP 02/08/1996, 5,09/09/1994,04/09/1994, [...] Mass Index 47.32 05/28/2025 3:58 PM EDT Plan of Treatment Health Maintenance Due Date Last Done Comments HIV Screening 1991 Disability Screening 1991 Alcohol/Substance Use Screening 2003 Family Planning (PISQ) 2006 Hepatitis C Screening 2009 Pneumococcal Vaccine: Pediatrics (0 to 5 Years) and At-Risk Patients (6 to 49) Years (1 of 2 - PCV) 2010 HPV Vaccines (2 - 3-dose series) 11/01/2011 10/04/2011 Pap Smear 2012 Cervical Cancer Screening 2021 HPV/Cotest 2021 DTaP/Tdap/Td Vaccines (8 - Td or Tdap) 04/10/2024 04/10/2014, 10/04/2011, 06/13/2003, Additional history exists Depression Screening 05/11/2024 05/11/2023, 05/11/20 23 SDOH Screening 05/11/2024 05/11/2023 COVID-19 Vaccine ( season) 2025 09/01/2021, 08/11/2021 Influenza Vaccine (#1) 2025 3, 10/04/2011, 05/17/2011, Additional history exists Tobacco Screening 05/28/2026 05/28/2025 Lipid Panel 06/15/2028 06/15/2023 Zoster Vaccines (1 [...] on patient's age to complete this topic Meningococcal B Vaccine Aged Out No l onger eligible based on patient's age to complete [...] 12:29 PM EDT) Triglycerides 103 <150 mg/dL [facility] Comment:Desirable Triglyceri de: less than 150 mg/dLBorderline High Triglyceride 150-199 mg/dLHigh Triglyceride: 200-499 mg/dLVery High Triglyceride: greater than or equal to 5OO mg/dL Cholesterol 163 <200 mg/dL [facility] Comment:Desirable Cholestero l: less than 200 mg/dLBorderline High Cholesterol: 200-239 mg/dLHigh Cholesterol: greater than 239 mg/dL LDL Cholesterol Calculated 111(H) <100 mg/dL [facility] Comment:Desirable LDL: less than 100 mg/dLNear Optimal/Above Optimal LDL: 110- 129 mg/dLBorderline High LDL: 130-159 mg/dLHigh LDL: 160-189 mg/dLVery High LDL: greater than or equal to 190 mg/dL HDL Cholesterol 32(L) >40 mg/dL [facility] Comment:Desirable HDL: great er than 40 mg/dL Note: This HDL assay may give artificially low results in patients with liver disease. 06/15/2023 12:2 9 PM EDT 06/15/2023 12:34 PM EDT us Generic External Data Provider LAB BLOOD ORDERAB LES Final Result [facility] [address] [place] [phone] from Last 3 Months or Most Recently Relevant to Health Maintenance Insurance [facility] C3 Care Teams It Security Engineer Relationship Specialty Start Date End Date VelasquezChalo Guzmán MD [address] [place] [address] [place] [phone] PCP - General Internal Medicine 05/14/20
--- OUTSIDE RECORDS SUMMARY | 2025-05-28 19:18 | XMS_ITS | Encounter Summary ---
Author Organization [employer] Address [address] [place] [address] 7t [place] [address] Care Team Providers Care Ict Educator Name Role Phone Chalo Lemos MD Primary Care Prov ider Encounter Details Date Type Department Care Team ([facility] st Contact Info) Description 02/21/2023 Orders Only [facility]EDS [address] [place] [address] Chalo Lemos MD [address] [place] [address] Social History Tobacco Use Types Packs/Day Years [...] EST) H. pylori Breath Test Positive Negative [facility] Comment:Antimicrobials, prot on pump inhibitors and bismuthpreparations are known to suppress H. pylori. Ingestingthese medications within two weeks prior to performing thebreath test may produce negative test results. A positiveresult is still clinically valid. 07/26/2023 10:1 4 AM EST 07/26/2023 7:19 PM EST Generic External Data Provider LAB BODY FLUIDS A ND STOOLS ORDERABLES Final Result Performing Organization Address [facility]/ZIP Co de Phone Number [facility] [address] [place] [phone] * Helicobacter pylori, Urea Breath Test (06/15/2023 1:50 PM EDT) H. pylori Breath Test TNP Negative [facility] Comment:Duplicate order/Orde red in error 06/15/2023 1:50 PM EDT 06/16/2023 1:51 PM EDT [facility] Exter nal Provider LAB BODY FLUIDS AND STOOLS ORDERABLES Final Result Performing Organization Address [facility] Co de Phone Number [facility] [address] [place] [phone] * Vitamin B1 (06/15/2023 12:29 PM EDT) Vitamin B1 8 8 - 30 nmol/L [facility] Comment:Vitamin supplementat ion within 24 hours prior toblood draw may affect the accuracy of the results.This test was developed and its analytical performancecharacteristics have been determined by [employer] [place], [place]. It hasnot been cleared or approved by the U.S. Food and DrugAdministration. This assay has been validated pursuantto the CLIA regulations and is used for clinicalpurposes.THIS TEST WAS PERFORMED AT:[email or web address] [place] [address]ZLSXVKCSARATH SHEA MD,PHD 06/15/2023 12:2 9 PM EDT 06/15/2023 12:34 PM EDT Generic External Data Provider LAB BLOOD ORDERAB LES Final Result Performing Organization Address [facility] de Phone Number [facility] [address] [place] [phone] * (ABNORMAL) Vitamin A (06/15/2023 12:29 PM EDT) Vitamin A (Retinol) 36(A) 38 - 98 mcg/dL [facility] Comment:Vitamin supplementat ion within 24 hours prior toblood draw may affect the accuracy of the results.This test was developed and its analytical performancecharacteristics have been determined by [employer] [place], [place]. It hasnot been cleared or approved by the U.S. Food and DrugAdministration. This assay has been validated pursuantto the CLIA regulations and is used for clinicalpurposes.THIS TEST WAS PERFORMED AT:[email or web address] [place] [address]SBXMRPGSARATH SHEA MD,PHD 06/15/2023 12:2 9 PM EDT 06/15/2023 12:34 PM EDT [facility] External Provider LAB BLO OD ORDERABLES Final Result Performing Organization Address [facility] de Phone Number [facility] [address] [place] [phone] * Zinc (06/15/2023 12:29 PM EDT) Zinc 60 60 - 130 mcg/dL [facility] Comment:This test was develo ped and its analytical performancecharacteristics have been determined by [employer] [place], [place]. It hasnot been cleared or approved by the U.S. Food and DrugAdministration. This assay has been validated pursuantto the CLIA regulations and is used for clinicalpurposes.THIS TEST WAS PERFORMED AT:[email or web address] [place] [address]OGJSBKMSARATH SHEA MD,PHD 06/15/2023 12:2 9 PM EDT 06/15/2023 12:34 PM EDT [facility] External Provider LAB BLO OD ORDERABLES Final Result [facility] [address] [place] [phone] [phone] * PTH, Intact Without Calcium (06/15/2023 12:29 PM EDT) PTHI 27 16 - 77 pg/mL [facility] Comment:Interpretive Guide I ntact PTH Calcium -------Normal Parathyroid Normal NormalHypoparathyroidism Low or Low Normal LowHyperparathyroidism Primary Normal or High High Secondary High Normal or Low Tertiary High HighNon-Parathyroid Hypercalcemia Low or Low Normal High Calcium (PTHI) 9.4 8.6 - 10.2 mg/dL [facility] Comment:THIS TEST WAS PERFOR MED AT:[email or web address] [address] [address]DWBCPANNIE LUCAS MD 06/15/2023 12:2 9 PM EDT 06/15/2023 12:34 PM EDT [facility] External Provider LAB BLO OD ORDERABLES Final Result Performing Organization Address City/[facility]/ZIP Co de Phone Number [facility] [address] [place] [address] [phone] * Vitamin B12/Folate, Serum Panel (06/15/2023 12:29 PM EDT) Vitamin B12 660 200 - 900 pg/mL [facility] Comment:NORMAL 200-900 PG/ML INDETERMINATE 160-199 PG/ML DEFICIENT < 160 PG/ML Folate 9.4 > or = 4.0 ng/mL [facility] Comment:Reference Values:> o r = 4.0 ng/mL< 4.0 ng/mL suggests folate deficiency Methotrexate, aminopterin and folinic acid(leucovorin) are chemotherapeutic agents whose molecularstructures are similar to folate; therefore, the Architectfolate assay cannot be used for patients using these drugs. 06/15/2023 12:2 9 PM EDT 06/15/2023 12:34 PM EDT [facility] External Provider LAB BLO OD ORDERABLES Final Result Performing Organization Address [facility] Co de Phone Number [facility] [address] [place] [phone] * Insulin (06/15/2023 12:29 PM EDT) Insulin 10 2 - 29 uU/mL [facility] Comment:This test was perfor med using the [employer] chemiluminescentmethod. Values obtained from different assay methods [...] ORDERAB LES Final Result Performing Organization Address [facility]/ZIP Co de Phone Number [facility] [address] [place] [phone] * TSH W/Reflex to FT4 (06/15/2023 12:29 PM EDT) TSH reflex Free T4 1.51 0.32 - 4.0 uIU/mL [facility] 06/15/2023 12:2 9 PM EDT 06/15/2023 12:34 PM EDT us Generic External Data Provider LAB BLOOD ORDERAB LES Final Result Performing Organization Address [facility] Co de Phone Number [facility] [address] [place] [phone] * Vitamin D, 25-Hydroxy, Total, Immunoassay (06/15/2023 12:29 PM EDT) Vitamin D 25-OH Total 31.2 >30 ng/mL [facility] Comment:Health Based Referen ce Values*< 20 ng/mL [id number] ng/mL Insufficient> 30 ng/mL Sufficient*Jackelin GORMAN. N [...] ORDERAB LES Final Result Performing Organization Address [facility] Co de Phone Number [facility] [address] [place] [phone] * Ferritin (06/15/2023 12:29 PM EDT) Ferritin 24 10 - 122 ng/mL [facility] 06/15/2023 12:2 9 PM EDT 06/15/2023 12:34 PM EDT us Generic External Data Provider LAB BLOOD ORDERAB LES Final Result Performing Organization Address City/[facility]/ZIP Co de Phone Number [facility] [address] [place] [phone] * (ABNORMAL) Lipid Panel, Standard (06/15/2023 12:29 PM EDT) Triglycerides 103 <150 mg/dL [facility] Comment:Desirable Triglyceri de: less than 150 mg/dLBorderline High Triglyceride 150-199 mg/dLHigh Triglyceride: 200-499 mg/dLVery High Triglyceride: greater than or equal to 5OO mg/dL Cholesterol 163 <200 mg/dL [facility] Comment:Desirable Cholestero l: less than 200 mg/dLBorderline High Cholesterol: 200-239 mg/dLHigh Cholesterol: greater than 239 mg/dL LDL Cholesterol Calculated 111(H) <100 mg/dL [facility] Comment:Desirable LDL: less than 100 mg/dLNear Optimal/Above Optimal LDL: 110- 129 mg/dLBorderline High LDL: 130-159 mg/dLHigh LDL: 160-189 mg/dLVery High LDL: greater than or equal to 190 mg/dL HDL Cholesterol 32(L) >40 mg/dL [facility] Comment:Desirable HDL: great er than 40 mg/dL Note: This HDL assay may give artificially low results in patients with liver disease. 06/15/2023 12:2 9 PM EDT 06/15/2023 12:34 PM EDT us Generic External Data Provider LAB BLOOD ORDERAB LES Final Result [facility] [address] [place] [phone] [phone] * (ABNORMAL) C-reactive Protein (06/15/2023 12:29 PM EDT) C Reactive Protein 1.56(H) < or = 0.50 mg/dL [facility] 06/15/2023 12:2 9 PM EDT 06/15/2023 12:34 PM EDT us Generic External Data Provider LAB BLOOD ORDERAB LES Final Result Performing Organization Address [facility]/ZIP Co de Phone Number [facility] [address] [place] [phone] * (ABNORMAL) Iron And Total Iron Binding Capacity (06/15/2023 12:29 PM EDT) Iron 31 30 - 160 mcg/dL [facility] Total Iron Binding Capacity 402 228 - 428 mcg/dL [facility] Percent Iron Saturation 8(L) 15 - 50 % [facility] Unsaturated Iron Binding 371 ug/dL [facility] 06/15/2023 12:2 9 PM EDT 06/15/2023 12:34 PM EDT Generic External Data Provider LAB BLOOD ORDERAB LES Final Result Performing Organization Address [facility] Co de Phone Number [facility] [address] [place] [phone] * (ABNORMAL) Comprehensive Metabolic Panel (06/15/2023 12:29 PM EDT) Sodium 138 135 - 145 mmol/L [facility] Potassium 3.9 3.3 - 5.1 mmol/L [facility] Chloride 104 96 - 108 mmol/L [facility] Carbon Dioxide 23 22 - 29 mmol/L [facility] Anion Gap 15 12 - 20 [facility] Urea Nitrogen (BUN) 8(L) 9 - 16 mg/dL [facility] Creatinine, Serum 0.59 0.5 - 1.4 mg/dL [facility] Estimated Glomerular Filt Rate >60 [facility] Comment:NOTE: For -Am erican individuals, multiply the result by 1.210.Chronic Kidney Disease: Estimated GFR < 60 mL/min/1.96y4Qyhnhn Kidney Disease: Estimated GFR < 15 mL/min/1.73m2 Glucose 87 60 - 115 mg/dL [facility] Calcium 9.7 8.4 - 10.2 mg/dL [facility] Bilirubin, Total 0.2 0.0 - 1.0 mg/dL [facility] Aspartate Amino Transferase 23 5 - 31 U/L [facility] Alanine Aminotransferase 32(H) 0 - 31 U/L [facility] Total Protein 7.0 6.5 - 8.0 g/dL [facility] Albumin Level 3.9 3.5 - 5.0 g/dL [facility] Alkaline Phosphatase 77 39 - 117 U/L [facility] 06/15/2023 12:2 9 PM EDT 06/15/2023 12:34 PM EDT [facility] External Provider LAB BLO OD ORDERABLES Final Result Performing Organization Address [facility]/ZIP Co de Phone Number [facility] [address] [place] [phone] * Hemoglobin A1c (06/15/2023 12:29 PM EDT) Hemoglobin A1c 5.2 <6.0 % [facility] Comment:Hemoglobin A1C Refer ence Range Adults: 4.8 - 6.0 % Non diabetic: < 6.0 % Goal: < 7.0 %Additional Action Suggested: > 8.0 %Note: Hemoglobin A1c results are invalid for patients with abnormal amounts of HbF. Blood transfusions may impact the HbA1c concentration in the patient sample. Estimated Average Glucose 103 mg/dL [facility] Comment:eAG = Estimated ave rage glucose which is %A1C expressed asaverage glucose, using the formula of the V9L-[id number] Glucose study (ADAG), Diabetes Care, Vol.31,#8,Apr. 2007 06/15/2023 12:2 9 PM EDT 06/15/2023 12:34 PM EDT [facility] External Provider LAB BLO OD ORDERABLES Final Result Performing Organization Address [facility] Co de Phone Number [facility] [address] [place] [phone] * (ABNORMAL) CBC auto differential (06/15/2023 12:29 PM EDT) White Blood Count 12.2(H) 4.8 - 10.8 X10*3/uL [facility] Red Blood Count 4.78 4.20 - 5.50 X10*6/uL [facility] Hemoglobin 12.4 12.0 - 16.0 g/dl [facility] Hematocrit 38.7 37.0 - 47.0 % [facility] Mean Corpuscular Volume 81.0 80.0 - 98.0 fL [facility] Mean Corpuscular Hemoglobin 25.9(L) 27.0 - 33.0 pg [facility] Mean Corpuscular HGB Conc 32.0 31.0 - 35.0 g/dl [facility] Red Cell Distribution Width 15.0 11.0 - 16.0 % [facility] Platelet Count 382 160 - 400 X10*3/uL [facility] Mean Platelet Volume 10.4 9.4 - 12.3 fL [facility] Neutrophils Percent Auto 66.0 45 - 73 % [facility] Imm Gran Pct Auto 0.3 0.0 - 0.4 % [facility] Lymphocytes Percent Auto 26.4 20 - 40 % [facility] Monocytes Percent Auto 5.5 2 - 11 % [facility] Eosinophils Percent Auto 1.6 0 - 4 % [facility] Basophils Percent Auto 0.2 0 - 2 % [facility] NRBC Pct Auto 0.0 0.0 - 0.2 /100WBC [facility] Neutrophils Absolute Auto 8.1 2.0 - 8.3 x10*3/uL [facility] Imm Gran Abs Auto 0.04(H) 0.00 - 0.03 X10*3/uL [facility] Lymphocytes Absolute Auto 3.2 1.2 - 4.9 X10*3/uL [facility] Monocytes Absolute Auto 0.7 0.1 - 1.2 X10*3/uL [facility] Eosinophils Absolute Auto 0.2 0.0 - 0.4 X10*3/uL [facility] Basophils Absolute Auto 0.0 0.0 - 0.2 X10*3/uL [facility] NRBC Abs Auto 0.000 0.0 - 0.012 X10*3/uL [facility] 06/15/2023 12:2 9 PM EDT 06/15/2023 12:34 PM EDT us [facility] External Provider LAB BLO OD ORDERABLES Final Result [facility] [address] [place] [phone] documented in this encounter Visit Diagnoses Not on filedocumented in this encounter Care Teams Ict Educator Relationship Specialty Start Date End Date Chalo Lemos MD [address] [place] [phone] PCP - General Internal Medicine 05/14/20 documented as of this encounter
--- OUTSIDE RECORDS SUMMARY | 2025-05-28 19:18 | XMS_ITS | Encounter Summary ---
Author Organization [employer] Address [address] [facility] [address] [place] [address] Care Team Providers Care Jig Inspector Name Role Phone Chalo Lemos MD Primary Care Prov ider Reason for Visit * Reason Onset Date Comments Results 02/26/2024 Encounter Details Date Type Department Care Team ([facility] st Contact Info) Description 02/26/2024 Telephone [facility] MED[facility]INE [address] [place] [address] Chalo Lemos MD [address] [facility] [place] [phone] Results Social History Tobacco Use Types Packs/Day [...] on filedocumented in this encounter Care Teams Jig Inspector Relationship Specialty Start Date End Date Chalo Lemos MD [address] [place] [id number] PCP - General Internal Medicine 05/14/20 documented as of this encounter
--- OUTSIDE RECORDS SUMMARY | 2025-05-28 19:18 | XMS_ITS | Encounter Summary ---
Author Organization [employer] Address [address] [facility] [address] [place] [address] Care Team Providers Care Retail Beauty Specialist Name Role Phone Chalo Lemos MD Primary Care Prov ider Reason for Visit * Reason Onset Date Comments Nurse Triage 07/12/2024 Encounter Details Date Type Department Care Team ([facility] st Contact Info) Description 07/12/2024 Telephone [facility] [address] [place], [place] [phone] Chalo Lemos MD [address] [facility] [place] [address] Nurse Triage Social History Tobacco Use Types [...] AM EDT Tc from pt returning call. Coil Repair Technician updated contact information. Contact pt at [phone] * Telephone Encounter - Dutch Claros - 07/12/2024 8:57 AM EDT Symptom: Runny Nose Outcome: Schedule an appointment to be seen within 24 hours Reason: Caller denied all higher acuity questions The caller accepted this outcome. documented in this encounter Plan of Treatment Not on file documented as of this encounter Visit Diagnoses Not on filedocumented in this encounter Care Teams Retail Beauty Specialist Relationship Specialty Start Date End Date Chalo Lemos MD [address] [place] [id number] PCP - General Internal Medicine 05/14/20 documented as of this encounter
--- OUTSIDE RECORDS SUMMARY | 2025-05-28 19:18 | XMS_ITS | Patient Health Record ---
Author Organization [facility] Address [address] [place], [place] Care Team Providers Care Hamper Maker Name Role Phone XXX Ximena Strickland Unavailable Unavailabl e Reason For Referral No Information Medications Medication SIG (Take, Route, Frequency, Duration) Notes Start Date End Date Status Active Plan Of Treatment No Information Insurance Providers Payer Name Payer Address Payer Phone Subscriber Number Group Number Insured Name Patient Relationship to Insured Coverage Start Date Coverage End Date [facility] [address] [address] [place], [place] [id number] Melanie Grant Self - patient is the insured Medical (General) History Medical History History ICD Code Asthma Childhood
--- OUTSIDE RECORDS SUMMARY | 2025-05-28 19:18 | XMS_ITS | Encounter Summary ---
Author Organization [employer] Address [address] [facility] [address] [place] [address] Care Team Providers Care Yoker Machine Operator Name Role Phone Chalo Lemos MD Primary Care Prov ider Reason for Visit * Reason Onset Date Comments Nurse Triage 04/03/2024 Encounter Details Date Type Department Care Team ([facility] st Contact Info) Description 04/03/2024 Telephone [facility] [address] [place], [place] [phone] Chalo Lemos MD [address] [place], [place] [phone] Nurse Triage Social History Tobacco Use Types [...] else could help this pain. ASK apt [facility] today at 340pm. Insurance is verified [...] on filedocumented in this encounter Care Teams Yoker Machine Operator Relationship Specialty Start Date End Date Chalo Lemos MD [address] [place] [id number] PCP - General Internal Medicine 05/14/20 documented as of this encounter
== END 2025-05-28 16:21 | disposition home or self-care (01) ==
LOC: HO.CHCLNP 16:20
PROVIDERS: PCP Internal Medicine; Visit Provider Internal Medicine
DX: L03.311 Cellulitis of abdominal wall (principal)
CPT/HCPCS: 87070; 87147; 87205